=== PATIENT | female | born 1975 | race Caucasian/White ===

== ENCOUNTER 2016-06-08 15:08 | Emergency (ER) | payer OTHER ==
[~2016-06-08] VITALS: Ht 149.9 cm; Wt 65.0 kg
[2016-06-08 15:25] VITALS: Ht 149.9 cm; Wt 65.0 kg
[2016-06-08] MEDS ORDERED: ONDANSETRON 4 MG INJ IV STA (16:26)
[2016-06-08] MEDS ORDERED: SOD CHLORIDE 0.9% 1,000 ML IV STA (16:26)
[2016-06-08] MEDS ORDERED: morphine 4 MG/ML VIAL IV STA (16:26)
--- NOTE | 2016-06-08 16:33 | ERD ---
ER Documentation Chief Complaint Date/Time DATE: 06/08/16 TIME: 16:30 Chief Complaint MID AP RADIATING TO RLQ TODAY DENIES V/D +NAUSEA HPI This is a 41-year-old female presents to the emergency department complaining of right upper quadrant pain that began 48 hours prior to arrival. She stated the pain radiated to the tip of her right scapula. There is no alleviating or exacerbating factors to the pain. The pain the last for several hours and then spontaneously resolved. She indicated she did not have any pain yesterday, however she awoke this morning around 1:30 AM, 12 hours prior to arrival with the same pain. Contrary to the triage note the patient states the pain does not radiate to her right lower quadrant. The pain has been present in the right lower quadrant as stated above still radiates to her right scapula. She has had no fevers or shaking or chills. She is felt nauseous but denies any hemoptysis hematemesis or melanotic stools. She denies any recent remote blunt or penetrating trauma. Her past surgical history includes a [employer] shunt that she had placed as a child due to hydrocephalus. She has had multiple revisions of her [employer]CH[employer]ICIAN shunt but denies a headache or changes in vision at this time. ROS All systems reviewed and are negative except as per history of present illness. Allergies Allergies: Coded Allergies: No Known Allergy (Unverified , 06/08/16) PMhx/Soc Anesthesia Reaction: No Hx Neurological Disorder: No Hx Respiratory Disorders: No Hx Cardiac Disorders: No Hx Psychiatric Problems: No Hx Miscellaneous Medical Probl: No Hx Alcohol Use: No Hx Substance Use: No Hx Tobacco Use: No Physical Exam Vitals Vital Signs Date Time Temp Pulse Resp B/P Pulse Ox O2 Delivery O2 Flow Rate FiO2 06/08/16 15:25 98.4 79 20 159/88 100 Physical Exam Constitutional:Well-developed. Well-nourished. HEENT:Normocephalic. Atraumatic.Pupils were equal round reactive to light. Moist mucous membranes.No tonsillar exudates. Neck: No nuchal rigidity. No lymphadenopathy. No posterior cervical spine tenderness or step-offs. Respiratory: Not using accessory muscles of respiration.Lungs were clear to auscultation bilaterally. No rhonchi. No rales. No wheezing. Cardiovascular: Regular rate regular rhythm.No murmurs. No rubs were appreciated.S1, S2 normal. Distal pulses are palpable 2+ bilaterally. GI: Abdomen was soft. Tenderness in the right upper quadrant with negative Vargas sign. No tenderness in the right lower quadrant, and no tenderness specifically over McBurney's point. Psoas sign negative. Obturator sign negative Muscle skeletal: Full range of motion of both the upper and lower extremities bilaterally.Normal muscle tone.No assymetrical calf tenderness or swelling. Skin: No petechia, no purpura. No lesions on the palms or the soles of the feet. No maculopapular rash. NEURO: Patient was alert, awake, orientated x3.No facial droop. Gait observed and normal with no ataxia.Speech had regular rate and rhythm. No focal neurological deficits. Result Diagram: 06/08/16180406/08/161804 Results 24 hrs Laboratory Tests Test 06/08/16 17:00 06/08/16 18:05 Urine Color LT. YELLOW Urine Clarity CLOUDY Urine pH 5.5 Urine Specific [place] >=1.030 Urine Ketones 40 Urine Nitrite NEGATIVE Urine Bilirubin NEGATIVE Urine Urobilinogen 0.2 E.U./dL Urine Leukocyte Esterase NEGATIVE Urine Microscopic RBC 2-5/HPF Urine Microscopic WBC 5-10/HPF Urine Squamous Epithelial Cells MANY Urine Bacteria MANY Urine Hemoglobin TRACE Urine Glucose NEGATIVE% Urine Total Protein TRACE White Blood Count 14.410^3/ul Red Blood Count 5.6210^6/ul Hemoglobin 14.3g/dl Hematocrit 44.5% Mean Corpuscular Volume 79.2fl Mean Corpuscular Hemoglobin 25.4pg Mean Corpuscular Hemoglobin Concent 32.1g/dl Red Cell Distribution Width 15.8% Platelet Count 44436^3/UL Mean Platelet Volume 9.7fl Neutrophils % 80.4% Lymphocytes % 15.4% Monocytes % 2.9% Eosinophils % 0.6% Basophils % 0.4% Nucleated Red Blood Cells % 0.0/100WBC Neutrophils # 11.610^3/ul Lymphocytes # 2.210^3/ul Monocytes # 0.410^3/ul Eosinophils # 0.110^3/ul Basophils # 0.110^3/ul Nucleated Red Blood Cells # 0.010^3/ul Prothrombin Time 12.2Sec Prothrombin Time Ratio 1.0 INR International Normalized Ratio 0.91 Activated Partial Thromboplast Time 30.3Sec Sodium Level 140mmol/L Potassium Level 4.8mmol/L Chloride Level 100mmol/L Carbon Dioxide Level 25mmol/L Anion Gap 20 Blood Urea Nitrogen 13mg/dl Creatinine 0.77mg/dl Glucose Level 131mg/dl Calcium Level 9.4mg/dl Total Bilirubin 0.3mg/dl Direct Bilirubin 0.00mg/dl Indirect Bilirubin 0.3mg/dl Aspartate Amino Transf (AST/SGOT) 26IU/L Alanine Aminotransferase (ALT/SGPT) 37IU/L Alkaline Phosphatase 51IU/L Troponin I < 0.012ng/ml Total Protein 8.8g/dl Albumin 4.3g/dl Globulin 4.50g/dl Albumin/Globulin Ratio 0.95 Amylase Level 81U/L Lipase 45U/L Current Medications Medications (Trade) Dose Ordered Sig/[place] Route PRN Reason Start Time Stop Time Status Last Admin Dose Admin Sodium Chloride (NS) 1,000 ml @ 1,000 mls/hr Q1H STAT IV 06/08/16 16:26 06/08/16 17:25 DC 06/08/16 18:09 Morphine Sulfate (morphine) 4 mg ONCE STAT IV 06/08/16 16:26 06/08/16 16:31 DC 06/08/16 18:08 Ondansetron HCl (Zofran Inj) 4 mg ONCE STAT IV 06/08/16 16:26 06/08/16 16:31 DC 06/08/16 18:08 Diclofenac Sodium (Dyloject) 37.5 mg ONCE STAT IV 06/08/16 18:26 06/08/16 18:29 DC 06/08/16 18:37 Procedures/MDM The patient presented to the emergency department with epigastric pain. My differential diagnosis included but was not limited to abdominal aortic aneurysm , choledocholithiasis, gallstone ileus, renal colic, pyelonephritis, pancreatitis, peptic ulcer disease, atypical myocardical infarction, mesenteric ischemia, GERD, pulmonary infarction. The patient was placed on a telemetry monitor, continuous pulse oximetry and IV access was established by nursing staff. Patient received intravenous morphine and had complete resolution of her pain An EKG was obtained to rule out myocardial ischemia. There was no elevation of LFTs to suggest ductal obstruction, cholangitis, cholecystiitis or hepatitis. Given that the urinalysis did not show bilirubinuria, my suspicion for common duct obstruction or hepatitis was low. Ultrasound of the gallbladder or and reviewed by myself indicated the patient had cholelithiasis with no evidence of cholecystitis. The patient had mild leukocytosis and my clinical suspicion was low for appendicitis as the patient had no reproducible tenderness the right lower quadrant and therefore did not feel is necessary to obtain a CT scan at this time. The patient also had a mild urinary tract infection and will be sent home with antibiotics which will include Keflex. Her pain completely resolved with bile object and morphine. She will be sent home with [place] for breakthrough pain and follow-up on an outpatient basis with the surgeon to discuss definitive treatment and possible cholecystectomy. The patient was discharged home in fair condition. They were instructed to return to the emergency department at any time if there was any worsening of their condition. The patient stated they would follow up with their PCP in the next 24-48 hours to initiate a suitable medication regimen under the care of their PCP as well as to allow their PCP to monitor any drug reactions. The patient was discharged home with prescriptions after they gave informed consent to the new medication. They were also fully informed by myself on the adverse effects and adverse drug interactions in order to provide adequate safeguards to prevent possible adverse reactions to medications. Departure Diagnosis: Primary Impression: Cholelithiasis Cholelithiasis location: gallbladder Cholecystitis presence: without cholecystitis Biliary obstruction: without biliary obstruction Qualified Code : K80.20 - Calculus of gallbladder without cholecystitis without obstruction Condition: KULDIP Brewer Jun 08, 2016 16:33
--- NOTE | 2016-06-08 17:13 | RADRPT ---
PROCEDURE: US Abdomen. CLINICAL INDICATION: Abdominal pain. TECHNIQUE: Multiple real-time images were acquired of the patient's abdomen and retroperitoneum ut ilizing a high resolution transducer. COMPARISON: No. FINDINGS: The pancreas is obscured by bowel gas. The liver is echogenic measuring 15.2 cm in length. No hepatic mass or intrahepatic biliary ductal dilatation is identified. The gallbladder wall measures 2.4 mm. Sludge is noted within the gallbla dder lumen along with multiple stones. The hepatic and portal veins are patent. Right kidney is normal measuring 8.2 cm in length without evidence of a mass or hydronephrosis. The left kidney and spleen are not evaluated. IMPRESSION: 1. Cholelithiasis without evidence of gallbladder wall thickening. 2. The pancreas and common bile duct are not evaluated. RPTAT:AAJJ Physician Zuly Date Time Electronically viewed and signed by Physician Zuly on 06/08/2016 17:12 /
[2016-06-08 17:43] LABS: ADD UMIC YES; URINE BILIRUBIN (Dip) NEGATIVE (NEGATIVE); URINE BLOOD (Dip) TRACE (NEGATIVE); URINE COLOR LT. YELLOW (YELLOW); URINE GLUCOSE (Dip) NEGATIVE (NEGATIVE); URINE KETONES (Dip) 40 (NEGATIVE); URINE LEUKOCYTE ESTERASE (Dip) NEGATIVE (NEGATIVE); URINE NITRITE (Dip) NEGATIVE (NEGATIVE); URINE TOTAL PROTEIN (Dip) TRACE (NEGATIVE); URINE UROBILINOGEN (Dip) 0.2 E.U./dL (0.1-1.0)
[2016-06-08 18:26] LABS: BACTERIA,URINE MANY; SQUAMOUS EPITHELIAL CELL,UR MANY
[2016-06-08 18:26] LABS: ADD SCAN DIFF NO
[2016-06-08] MEDS ORDERED: DICLOFENAC SODIUM 37.5 MG/ML VIAL IV STA (18:26)
[2016-06-08 18:38] LABS: BASOPHIL # 0.1 10^3/ul (0.0-0.1); BASOPHILS % 0.4 % (0.0-2.0); EOSINOPHILS # 0.1 10^3/ul (0.0-0.5); EOSINOPHILS % 0.6 % (0.0-7.0); HEMATOCRIT 44.5 % (37.0-47.0); HEMOGLOBIN 14.3 g/dl (12.0-16.0); LYMPHOCYTES # 2.2 10^3/ul (0.8-2.9); LYMPHOCYTES % 15.4 % (15.0-51.0); MEAN CORPUSCULAR HEMOGLOBIN 25.4 pg (29.0-33.0); MEAN CORPUSCULAR HGB CONC 32.1 g/dl (32.0-37.0); MEAN CORPUSCULAR VOLUME 79.2 fl (82.0-101.0); MEAN PLATELET VOLUME 9.7 fl (7.4-10.4); MONOCYTE # 0.4 10^3/ul (0.3-0.9); MONOCYTES % 2.9 % (0.0-11.0); NEUTROPHIL # 11.6 10^3/ul (1.6-7.5); NEUTROPHILS % 80.4 % (39.0-77.0); PLATELET COUNT 466 10^3/UL (140-415); RED BLOOD COUNT 5.62 10^6/ul (4.20-5.40); RED CELL DISTRIBUTION WIDTH 15.8 % (11.5-14.5); WHITE BLOOD COUNT 14.4 10^3/ul (4.8-10.8)
[2016-06-08 18:39] LABS: ALBUMIN 4.3 g/dl (3.3-4.9); CHLORIDE 100 mmol/L (97-110); INR 0.91; PROTIME 12.2 Sec (12.2-14.2); SODIUM 140 mmol/L (135-144)
[2016-06-08 18:40] LABS: PARTIAL THROMBOPLASTIN TIME 30.3 Sec (25.0-35.0); POTASSIUM 4.8 mmol/L (3.5-5.1)
[2016-06-08 18:42] LABS: ALANINE AMINOTRANSFERASE 37 IU/L (13-69); ALBUMIN/GLOBULIN RATIO 0.95; ALKALINE PHOSPHATASE 51 IU/L (42-121); AMYLASE 81 U/L (11-123); ANION GAP 20 (8-16); ASPARTATE AMINO TRANSFERASE 26 IU/L (15-46); BILIRUBIN,INDIRECT 0.3 mg/dl (0-1.1); BILIRUBIN,TOTAL 0.3 mg/dl (0.2-1.3); BLOOD UREA NITROGEN 13 mg/dl (7-20); CALCIUM 9.4 mg/dl (8.4-10.2); CARBON DIOXIDE 25 mmol/L (21-31); CREATININE 0.77 mg/dl (0.44-1.00); GLUCOSE 131 mg/dl (70-220); TOTAL PROTEIN 8.8 g/dl (6.1-8.1)
[2016-06-08 18:57] LABS: TROPONIN-I < 0.012 ng/ml (0.00-0.12)
[2016-06-08] MEDS ORDERED: IBUP-1542 PO (19:27)
[2016-06-08] MEDS ORDERED: HYDR-906 PO (19:27)
[2016-06-08 19:56] VITALS: BP 125/82; PULSE 108; RESP 20; TEMP 98.4
== END 2016-06-08 19:56 | disposition home or self-care (01) ==
LOC: FTE 15:08
DX: K80.20 Calculus of gallbladder without cholecystitis without obstruction (principal); R11.0 Nausea
CPT/HCPCS: 76705; 80053; 81001; 82150; 83690; 84484; 85025; 85610; 85730; 93005; J2270; J2405; J7030; 81003; 96374; 96375

== ENCOUNTER 2016-06-14 03:31 | Emergency (ER) | payer OTHER ==
[~2016-06-14] VITALS: Ht 152.4 cm; Wt 64.5 kg
[~2016-06-14 03:31] MED LIST: HYDR-906 PO; IBUP-1542 PO
[2016-06-14 03:33] VITALS: Ht 152.4 cm; Wt 64.5 kg
[2016-06-14] MEDS ORDERED: morphine 4 MG/ML VIAL IV STA (04:25)
[2016-06-14] MEDS ORDERED: ONDANSETRON 4 MG INJ IV STA (04:25)
[2016-06-14] MEDS ORDERED: SOD CHLORIDE 0.9% 1,000 ML IV STA (04:25)
[2016-06-14 05:19] LABS: ADD SCAN DIFF NO
[2016-06-14 05:24] LABS: BASOPHIL # 0.1 10^3/ul (0.0-0.1); BASOPHILS % 0.4 % (0.0-2.0); EOSINOPHILS # 0.4 10^3/ul (0.0-0.5); EOSINOPHILS % 2.3 % (0.0-7.0); HEMATOCRIT 40.1 % (37.0-47.0); HEMOGLOBIN 13.1 g/dl (12.0-16.0); LYMPHOCYTES # 2.4 10^3/ul (0.8-2.9); LYMPHOCYTES % 15.2 % (15.0-51.0); MEAN CORPUSCULAR HEMOGLOBIN 25.8 pg (29.0-33.0); MEAN CORPUSCULAR HGB CONC 32.7 g/dl (32.0-37.0); MEAN CORPUSCULAR VOLUME 78.9 fl (82.0-101.0); MEAN PLATELET VOLUME 9.6 fl (7.4-10.4); MONOCYTE # 0.7 10^3/ul (0.3-0.9); MONOCYTES % 4.2 % (0.0-11.0); NEUTROPHIL # 12.1 10^3/ul (1.6-7.5); NEUTROPHILS % 77.4 % (39.0-77.0); PLATELET COUNT 398 10^3/UL (140-415); RED BLOOD COUNT 5.08 10^6/ul (4.20-5.40); RED CELL DISTRIBUTION WIDTH 15.9 % (11.5-14.5); WHITE BLOOD COUNT 15.6 10^3/ul (4.8-10.8)
[2016-06-14 05:34] LABS: ALBUMIN 3.7 g/dl (3.3-4.9)
[2016-06-14 05:35] LABS: POTASSIUM 3.7 mmol/L (3.5-5.1)
[2016-06-14 05:37] LABS: ALBUMIN/GLOBULIN RATIO 0.92; BILIRUBIN,INDIRECT 0.4 mg/dl (0-1.1); BILIRUBIN,TOTAL 0.4 mg/dl (0.2-1.3); CREATININE 0.85 mg/dl (0.44-1.00); TOTAL PROTEIN 7.7 g/dl (6.1-8.1)
[2016-06-14 05:38] LABS: CALCIUM 8.8 mg/dl (8.4-10.2)
[2016-06-14 06:25] LABS: ADD UMIC NO; URINE BILIRUBIN (Dip) NEGATIVE (NEGATIVE); URINE BLOOD (Dip) NEGATIVE (NEGATIVE); URINE COLOR LT. YELLOW (YELLOW); URINE GLUCOSE (Dip) NEGATIVE (NEGATIVE); URINE KETONES (Dip) 15 (NEGATIVE); URINE LEUKOCYTE ESTERASE (Dip) NEGATIVE (NEGATIVE); URINE NITRITE (Dip) NEGATIVE (NEGATIVE); URINE TOTAL PROTEIN (Dip) NEGATIVE (NEGATIVE); URINE UROBILINOGEN (Dip) 0.2 E.U./dL (0.1-1.0)
[2016-06-14] MEDS ORDERED: morphine 10 MG INJ IV ONE (07:00)
--- NOTE | 2016-06-14 07:01 | ERD ---
ER Documentation Chief Complaint Date/Time DATE: 06/14/16 TIME: 06:58 Chief Complaint RUQ abd pain radaiting to back x 2 days, hx- gall stones HPI This 41-year-old female presents for right upper quadrant pain rating to her back for 2 days worse in the last hour. She was recently diagnosed with gallstones. She denies any fevers chills. Has had some nausea. She took one [place] at home which started to help for the pain but then it wore off. ROS All systems reviewed and are negative except as per history of present illness. Medications Home Meds Active Scripts Ibuprofen* (Motrin*) 600 Mg Tab, 600 MG PO Q8, #20 TAB Prov:ELVIA RASHEEDA 06/08/16 Hydrocodone/Acetaminophen ([place] 5-325 Tablet) 1 Each Tablet, 1 TAB PO Q6H Y for PAIN, #20 TAB Prov:WILI,KULDIP 06/08/16 Allergies Allergies: Coded Allergies: No Known Allergy (Unverified , 06/08/16) PMhx/Soc Anesthesia Reaction: No Hx Neurological Disorder: No Hx Respiratory Disorders: No Hx Cardiac Disorders: No Hx Psychiatric Problems: No Hx Miscellaneous Medical Probl: No Hx Alcohol Use: No Hx Substance Use: No Hx Tobacco Use: No Smoking Status: Never smoker Physical Exam Vitals Vital Signs Date Time Temp Pulse Resp B/P Pulse Ox O2 Delivery O2 Flow Rate FiO2 06/14/16 06:07 126 22 133/80 99 06/14/16 03:33 97.8 121 20 131/78 98 Physical Exam Const: [] No distress Head: Atraumatic Eyes: Normal Conjunctiva ENT: Normal External Ears, Nose and Mouth. Neck: Full range of motion..~ No meningismus. Resp: Clear to auscultation bilaterally Cardio: Regular mild tachycardia, no murmurs Abd: Soft, moderate right upper quadrant tenderness without guarding or rebound., non distended. Normal bowel sounds Skin: No petechiae or rashes Back: No midline or flank tenderness Ext: No cyanosis, or edema Neur: Awake and alert and oriented 3, no focal deficit Psych: Normal Mood and Affect Result Diagram: 06/14/16 0455 06/14/16 0455 Results 24 hrs Laboratory Tests Test 06/14/16 04:55 06/14/16 06:03 White Blood Count 15.610^3/ul Red Blood Count 5.0810^6/ul Hemoglobin 13.1g/dl Hematocrit 40.1% Mean Corpuscular Volume 78.9fl Mean Corpuscular Hemoglobin 25.8pg Mean Corpuscular Hemoglobin Concent 32.7g/dl Red Cell Distribution Width 15.9% Platelet Count 59428^3/UL Mean Platelet Volume 9.6fl Neutrophils % 77.4% Lymphocytes % 15.2% Monocytes % 4.2% Eosinophils % 2.3% Basophils % 0.4% Nucleated Red Blood Cells % 0.0/100WBC Neutrophils # 12.110^3/ul Lymphocytes # 2.410^3/ul Monocytes # 0.710^3/ul Eosinophils # 0.410^3/ul Basophils # 0.110^3/ul Nucleated Red Blood Cells # 0.010^3/ul Sodium Level 140mmol/L Potassium Level 3.7mmol/L Chloride Level 103mmol/L Carbon Dioxide Level 25mmol/L Anion Gap 16 Blood Urea Nitrogen 16mg/dl Creatinine 0.85mg/dl Glucose Level 141mg/dl Calcium Level 8.8mg/dl Total Bilirubin 0.4mg/dl Direct Bilirubin 0.00mg/dl Indirect Bilirubin 0.4mg/dl Aspartate Amino Transf (AST/SGOT) 225IU/L Alanine Aminotransferase (ALT/SGPT) 155IU/L Alkaline Phosphatase 51IU/L Total Protein 7.7g/dl Albumin 3.7g/dl Globulin 4.00g/dl Albumin/Globulin Ratio 0.92 Lipase 74U/L Urine Color LT. YELLOW Urine Clarity CLEAR Urine pH 6.0 Urine Specific [place] <=1.005 Urine Ketones 15 Urine Nitrite NEGATIVE Urine Bilirubin NEGATIVE Urine Urobilinogen 0.2 E.U./dL Urine Leukocyte Esterase NEGATIVE Urine Hemoglobin NEGATIVE Urine Glucose NEGATIVE% Urine Total Protein NEGATIVE Current Medications Medications (Trade) Dose Ordered Sig/[place] Route PRN Reason Start Time Stop Time Status Last Admin Dose Admin Sodium Chloride (NS) 1,000 ml @ 1,000 mls/hr Q1H STAT IV 06/14/16 04:25 06/14/16 05:24 DC 06/14/16 04:46 Morphine Sulfate (morphine) 6 mg ONCE STAT IV 06/14/16 04:25 06/14/16 04:26 DC 06/14/16 04:45 Ondansetron HCl (Zofran Inj) 4 mg ONCE STAT IV 06/14/16 04:25 06/14/16 04:26 DC 06/14/16 04:45 Procedures/MDM Biliary colic with white blood cell count elevation as well as mild LFT elevation cardia suggestive of acute cholecystitis. Patient was given 4 mg of morphine which almost resolved her pain, was given Zofran which resolved her nausea and IV fluids. She still remained mildly tachycardic and was offered admission. However she was feeling better and decided she would rather go home and try to follow-up with surgeon on Wednesday. States that she can return to the emergency room if needed. I again reiterated the positive findings but she would prefer to go home. Ultrasound did show no evidence of obstruction currently. Am going to discharge with Percocet, naproxen and Zofran ODT. Gallbladder ultrasound interpretation gallstones without persistent colic fluid , without dilated duct, without thickened wall. Departure Diagnosis: Primary Impression: Acute cholecystitis Condition: NEELAM Topete DO Jun 14, 2016 07:01
[2016-06-14] MEDS ORDERED: ONDA4TAB11 PO (07:04)
[2016-06-14] MEDS ORDERED: OXYC-209 PO (07:04)
[2016-06-14] MEDS ORDERED: NAPR-688 PO (07:04)
--- NOTE | 2016-06-14 07:04 | RADRPT ---
PROCEDURE: Abdominal ultrasound, limited. CLINICAL INDICATION: Abdominal pain. TECHNIQUE: Multiple real-time images were acquired of the patient's right upper abdomen utilizing a high resolution transducer. COMPARISON: 06/08/2016. FINDINGS: The liver demonstrates increased echogenicity and normal size measuring 15.1 cm. There is no focal mass or intrahepatic biliary ductal dilatation. The portal vein is patent. The gallbladder is not distended. Multiple echogenic gallstones are identified. There is no pericholecystic fluid or gall bladder wall thickening. There is a negative sonographic Vargas's sign. The common bile duct measu res 3.6 mm in maximal dimension. The pancreas is obscured by overlying bowel gas. No free fluid is identified. The right kidney is normal size and echogenicity measuring 8.8 cm. There is no focal renal mass or echogenic calculus identified. There is no obstructive uropathy. IMPRESSION: Cholelithiasis without ultrasound evidence of cholecystitis. Fatty infiltration of the liver. Pancreas obscured by overlying bowel gas. .Ibrahima Delcid MD, MD Date Time Electronically viewed and signed by .Ibrahima Delcid MD, MD on 06/14/2016 07:04 .T/
[2016-06-14] MEDS ORDERED: METR500T PO (07:05)
[2016-06-14] MEDS ORDERED: CIPR500T4 PO (07:05)
[2016-06-14 08:05] VITALS: BP 129/83; PULSE 78; RESP 16; TEMP 98.6
== END 2016-06-14 08:10 | disposition home or self-care (01) ==
LOC: E/R 03:31
DX: K81.0 Acute cholecystitis (principal); R11.0 Nausea
CPT/HCPCS: 36415; 76705; 80053; 81003; 83690; 85025; 96374; 96375; 96376; 99285; J2270; J2405; J7030

== ENCOUNTER 2016-06-15 18:42 | Inpatient (IN) | payer OTHER ==
[~2016-06-15] VITALS: Ht 149.9 cm; Wt 65.0 kg
[~2016-06-15 18:42] MED LIST changes: +CIPR500T4 PO; +METR500T PO; +NAPR-688 PO; +ONDA4TAB11 PO; +OXYC-209 PO
--- NOTE | 2016-06-15 21:48 | ERD ---
ER Documentation Chief Complaint Date/Time DATE: 06/15/16 TIME: 21:45 Chief Complaint WORSENED AP, ON ANTIBIOTICS AND PAIN MEDS. STATES STILL HURTS MORE. HPI 41-year-old female presents here in emergency department for complaints of right upper quadrant abdominal pain, was diagnosed of gallbladder stones 2 days ago, currently was given antibiotics, currently taking, also took pain medication at home prescribed 2 days ago, patient is complaining of right upper quadrant pain sharp pain 8/10 scale, better after taking. Patient denies any nausea or vomiting. Patient denies any fever or chills. Patient isn't developing. Patient denies hematuria or dysuria. ROS All systems reviewed and are negative except as per history of present illness. Medications Home Meds Active Scripts Metronidazole* (Flagyl*) 500 Mg Tablet, 500 MG PO TID for 7 Days, TAB Prov:NEELAM STEWART DO 06/14/16 Ciprofloxacin Hcl* (Ciprofloxacin Hcl*) 500 Mg Tablet, 500 MG PO BID for 7 Days , TAB Prov:NEELAM STEWART DO 06/14/16 Ondansetron (Zofran Odt) 4 Mg Tab.rapdis, 4 MG PO Q6, #10 Prov:NEELAM STEWART DO 06/14/16 Naproxen* (Naproxen*) 500 Mg Tablet, 500 MG PO BID Y for PAIN, #20 TAB Prov:NEELAM STEWART DO 06/14/16 Oxycodone HCl/Acetaminophen (Percocet 10-325 mg Tablet) 1 Each Tablet, 1 EACH PO Q6, #20 TAB Prov:NEELAM STEWART DO 06/14/16 Ibuprofen* (Motrin*) 600 Mg Tab, 600 MG PO Q8, #20 TAB Prov:WILIJULIO CÉSAR CAMPOSTHIA 06/08/16 Hydrocodone/Acetaminophen ([place] 5-325 Tablet) 1 Each Tablet, 1 TAB PO Q6H Y for PAIN, #20 TAB Prov:WILI,KULDIP 06/08/16 Allergies Allergies: Coded Allergies: No Known Allergy (Unverified , 06/08/16) PMhx/Soc History of Surgery: Yes ([employer] PHYSICIAN shunt placement) Anesthesia Reaction: No Hx Neurological Disorder: No Hx Respiratory Disorders: No Hx Cardiac Disorders: No Hx Psychiatric Problems: No Hx Miscellaneous Medical Probl: Yes (hydrocephalus, gallbladder stones) Hx Alcohol Use: No Hx Substance Use: No Hx Tobacco Use: No Smoking Status: Never smoker FmHx Family History: No coronary disease, No diabetes, No other Physical Exam Vitals Vital Signs Date Time Temp Pulse Resp B/P Pulse Ox O2 Delivery O2 Flow Rate FiO2 06/15/16 19:46 99.0 101 18 135/82 97 Physical Exam GENERAL: The patient is well developed and appropriate for usual state of health, in no apparent distress. CHEST: Clear to auscultation bilaterally. There are no rales, wheezes or rhonchi. HEART: Regular rate and rhythm. No murmurs, clicks, rubs or gallops. No S3 or S4. ABDOMEN: Soft, nontender and nondistended. Good bowel sounds. No rebound or guarding. No gross peritonitis. No gross organomegaly or masses. Positive Vargas 's sign, negative McBurney point tenderness. BACK: No midline or flank tenderness. EXTREMITIES: Equal pulses bilaterally. There is no peripheral clubbing, cyanosis or edema. No focal swelling or erythema. Full range of motion. Grossly neurovascularly intact. NEURO: Alert and oriented. Cranial nerves 2-12 intact. Motor strength in all 4 extremities with 5/5 strength. Sensation grossly intact. Normal speech and gait. SKIN: There is no apparent rash or petechia. The skin is warm and dry. HEMATOLOGIC AND LYMPHATIC: There is no evidence of excessive bruising or lymphedema. No gross cervical, axillary, or inguinal lymphadenopathy. Result Diagram: 06/15/16215406/15/162154 Results 24 hrs Laboratory Tests Test 06/15/16 21:55 White Blood Count 10.310^3/ul Red Blood Count 5.0410^6/ul Hemoglobin 13.2g/dl Hematocrit 39.9% Mean Corpuscular Volume 79.2fl Mean Corpuscular Hemoglobin 26.2pg Mean Corpuscular Hemoglobin Concent 33.1g/dl Red Cell Distribution Width 16.0% Platelet Count 99704^3/UL Mean Platelet Volume 9.2fl Neutrophils % 73.5% Lymphocytes % 15.5% Monocytes % 6.0% Eosinophils % 3.9% Basophils % 0.6% Nucleated Red Blood Cells % 0.0/100WBC Neutrophils # 7.610^3/ul Lymphocytes # 1.610^3/ul Monocytes # 0.610^3/ul Eosinophils # 0.410^3/ul Basophils # 0.110^3/ul Nucleated Red Blood Cells # 0.010^3/ul Sodium Level 139mmol/L Potassium Level 4.0mmol/L Chloride Level 102mmol/L Carbon Dioxide Level 24mmol/L Anion Gap 17 Blood Urea Nitrogen 10mg/dl Creatinine 0.82mg/dl Glucose Level 117mg/dl Calcium Level 9.2mg/dl Total Bilirubin 3.1mg/dl Direct Bilirubin 2.20mg/dl Indirect Bilirubin 0.9mg/dl Aspartate Amino Transf (AST/SGOT) 327IU/L Alanine Aminotransferase (ALT/SGPT) 500IU/L Alkaline Phosphatase 118IU/L Total Protein 8.5g/dl Albumin 4.1g/dl Globulin 4.40g/dl Albumin/Globulin Ratio 0.93 Lipase 59U/L Current Medications Medications (Trade) Dose Ordered Sig/[place] Route PRN Reason Start Time Stop Time Status Last Admin Dose Admin Sodium Chloride (NS) 1,000 ml @ 1,000 mls/hr Q1H ONCE IV 06/15/16 22:30 06/15/16 23:29 DC 06/15/16 23:03 Morphine Sulfate (morphine) 2 mg ONCE ONCE IV 06/15/16 22:30 06/15/16 22:31 DC 06/15/16 23:03 Ondansetron HCl (Zofran Inj) 4 mg ONCE STAT IV 06/15/16 22:24 06/15/16 22:28 DC 06/15/16 23:02 Patient was given medication for pain here in emergency department, after treatment, patient verbalized feeling much better. Patient's pain is improved.Patient was given Zofran here in the emergency department. After treatment, patient was able to tolerate po fluids here in the emergency department without any vomiting. There is no signs and symptoms of dehydration. Normal saline IV bolus was given here in emergency department for rehydration, patient tolerated IV fluids. PROCEDURE: US Abdomen. CLINICAL INDICATION: Right upper quadrant pain TECHNIQUE: Multiple real-time images were acquired of the patient's abdomen and retroperitoneum utilizing a high resolution transducer. COMPARISON: 06/14/2016 FINDINGS: The liver demonstrates normal echogenicity and size and no focal lesions are seen. The liver measures 15.8 cm in length. There are gallstones in the gallbladder. There is no gallbladder wall thickening or pericholecystic fluid identified. No intra or extrahepatic biliary dilatation is seen. The common bile duct measures 4 mm in maximal dimension. The pancreas is not well visualized. No free fluid is identified. The right kidney measures 8.5 cm in long dimension. There is no right hydronephrosis or visualized renal calculi. IMPRESSION: 1. Gallstones in the gallbladder. No gallbladder wall thickening or pericholecystic fluid. 2. No biliary dilatation or right hydronephrosis. RPTAT: HBST .Antoine Chacon MD, MD Date Time Electronically viewed and signed by .Antoine Chacon MD, on 06/15/2016 23:12 .T/ CC: PRATIK SALMON NP Procedures/MDM Medical Decision Making: Patient's right upper quadrant tenderness, positive Vargas sign, elevated total bilirubin direct bilirubin and liver function tests from yesterday, patient has multiple gallbladder stones in the gallbladder, considering patient's symptoms, I discussed this case with my attending physician, Dr. Garcia, patient will be admitted for acute cholecystitis, possible surgical evaluation. Patient was advised about this, agrees with plan. Departure Diagnosis: Primary Impression: Cholecystitis Condition: Fair PRATIK SALMON NP June 15, 2016 21:48 PRATIK SALMON NP June 15, 2016 21:48
[2016-06-15 22:03] LABS: ADD SCAN DIFF NO
[2016-06-15 22:04] LABS: BASOPHIL # 0.1 10^3/ul (0.0-0.1); BASOPHILS % 0.6 % (0.0-2.0); EOSINOPHILS # 0.4 10^3/ul (0.0-0.5); EOSINOPHILS % 3.9 % (0.0-7.0); HEMATOCRIT 39.9 % (37.0-47.0); HEMOGLOBIN 13.2 g/dl (12.0-16.0); LYMPHOCYTES # 1.6 10^3/ul (0.8-2.9); LYMPHOCYTES % 15.5 % (15.0-51.0); MEAN CORPUSCULAR HEMOGLOBIN 26.2 pg (29.0-33.0); MEAN CORPUSCULAR HGB CONC 33.1 g/dl (32.0-37.0); MEAN CORPUSCULAR VOLUME 79.2 fl (82.0-101.0); MEAN PLATELET VOLUME 9.2 fl (7.4-10.4); MONOCYTE # 0.6 10^3/ul (0.3-0.9); NEUTROPHIL # 7.6 10^3/ul (1.6-7.5); NEUTROPHILS % 73.5 % (39.0-77.0); PLATELET COUNT 378 10^3/UL (140-415); RED BLOOD COUNT 5.04 10^6/ul (4.20-5.40); WHITE BLOOD COUNT 10.3 10^3/ul (4.8-10.8)
[2016-06-15 22:14] LABS: ALBUMIN 4.1 g/dl (3.3-4.9)
[2016-06-15 22:17] LABS: BILIRUBIN,DIRECT 2.2 mg/dl (0.00-0.20); BILIRUBIN,INDIRECT 0.9 mg/dl (0-1.1); BILIRUBIN,TOTAL 3.1 mg/dl (0.2-1.3); CREATININE 0.82 mg/dl (0.44-1.00)
[2016-06-15 22:18] LABS: ALBUMIN/GLOBULIN RATIO 0.93; CALCIUM 9.2 mg/dl (8.4-10.2); TOTAL PROTEIN 8.5 g/dl (6.1-8.1)
[2016-06-15] MEDS ORDERED: ONDANSETRON 4 MG INJ IV STA (22:24)
[2016-06-15] MEDS ORDERED: SOD CHLORIDE 0.9% 1,000 ML IV ONE (22:30)
[2016-06-15] MEDS ORDERED: morphine 2 MG INJ IV ONE (22:30)
--- NOTE | 2016-06-15 23:12 | RADRPT ---
PROCEDURE: US Abdomen. CLINICAL INDICATION: Right upper quadrant pain TECHNIQUE: Multiple real-time images were acquired of the patient's abdomen and retroperitoneum ut ilizing a high resolution transducer. COMPARISON: 06/14/2016 FINDINGS: The liver demonstrates normal echogenicity and size and no focal lesions are seen. The liver measure s 15.8 cm in length. There are gallstones in the gallbladder. There is no gallbladder wall thickeni ng or pericholecystic fluid identified. No intra or extrahepatic biliary dilatation is seen. The co mmon bile duct measures 4 mm in maximal dimension. The pancreas is not well visualized. No free f luid is identified. The right kidney measures 8.5 cm in long dimension. There is no right hydronephrosis or visualized r enal calculi. IMPRESSION: 1. Gallstones in the gallbladder. No gallbladder wall thickening or pericholecystic fluid. 2. No biliary dilatation or right hydronephrosis. RPTAT: HBST .Antoine Chacon MD, MD Date Time Electronically viewed and signed by .Antoine Chacon MD, on 06/15/2016 23:12 .T/
--- NOTE | 2016-06-16 02:24 | QN ---
Documentation Comment H&P dict a/p 1. gall stone disease, check MRCP, ?ercp, lap danielle CARMEN HOLLINS MD June 16, 2016 02:24
[2016-06-16] MEDS ORDERED: ZOLPIDEM 5 MG TAB PO PRN (02:30)
--- NOTE | 2016-06-16 02:41 | HP ---
DATE OF ADMISSION: 06/15/2016 CHIEF COMPLAINT: Abdominal pain. HISTORY OF PRESENT ILLNESS: The patient presents to the emergency room at [facility] for t he third time in 1 week with abdominal pain, which she localizes to the epigastrium and right upper quadrant region. This is associated with some nausea, no vomiting, no diarrhea. Denies fevers and chills. States that this pain has been present, coming and going. She has been to the emergency ro om 3 times. She had an ultrasound and was told she had gallstones. She was referred to home and to to follow up with her primary care physician to arrange surgeon referral. However, she had recur rence of her symptoms and returns here to the emergency room. PAST MEDICAL HISTORY: Nil. MEDICATIONS AN OUTPATIENT: Nil. ALLERGIES: NIL. SOCIAL HISTORY: The patient lives at home in [place] with her . Independent of activitie s of daily living. Does not drive. Does not use a cane or walker. FAMILY HISTORY: Noncontributory. REVIEW OF SYSTEMS: Five systems reviewed and found not to be revealing. PHYSICAL EXAMINATION: VITAL SIGNS: Blood pressure is 127/82, pulse rate 79, respirations 18, temperature is 98.5. GENERAL: Pleasant young woman in no acute distress, alert and oriented x3. HEENT: Normocephalic, atraumatic without evident scleral icterus, perioral cyanosis. Mucous membra margarita are moist. NECK: Soft and supple without masses. No evidence of jugular venous distention or carotid bruits. CHEST: Clear to auscultation and percussion bilaterally. HEART: Regular rate and rhythm. S1, S2. No added sounds. ABDOMEN: Soft. Tender in the right upper quadrant. No palpable hepatosplenomegaly. EXTREMITIES: Without clubbing, cyanosis, or edema. SKIN: Without rashes. NEUROLOGIC: Grossly intact. LABORATORY STUDIES: Reveal hemoglobin 13.2 g/dL, white count of 10,300; platelets of 378,000. Sodi um 139, potassium 4.0, chloride 102, bicarbonate 24, BUN 10, creatinine 0.82, glucose 117. AST 327, ALT 500, alkaline phosphatase 118, total bilirubin 3.1. Lipase is 59. The patient had an abdomina l ultrasound, which reveals gallstones in the gallbladder, but no wall thickening or pericholecystic fluid. No biliary ductal dilatation is appreciated. ASSESSMENT AND PLAN: Gastrointestinal: The patient with gallstone disease and manifest right upper quadrant pain. We will plan to obtain MRCP to ensure there is no common bile duct stone and surgic al evaluation. Anticipate laparoscopic cholecystectomy. Will start antibiotics, pain control, and IV fluids. Dictated By: CARMEN HOLLINS MD RER/NTS Conf#: [id number] DID#: [id number]
[2016-06-16] MEDS: PIPER-TAZO 3.375 GM IV (PMX) 100 ML IVPB SCH ×3 (03:09→17:41)
[2016-06-16] MEDS: D5W-0.45 NACL + KCL 40 MEQ 1,000 ML IV SCH ×3 (03:09→17:41)
[2016-06-16] MEDS: morphine 4 MG/ML VIAL IV PRN ×3 (03:13→15:41)
[2016-06-16] MEDS: ONDANSETRON 4 MG INJ IV PRN ×3 (03:13→21:55)
[2016-06-16] MEDS ORDERED: IBUPROFEN 200 MG TAB ONE (08:23)
--- NOTE | 2016-06-16 09:52 | CONS ---
Date/Time of Note Date/Time of Note DATE: 06/16/16 TIME: 09:52 Assessment/Plan Assessment/Plan Chief Complaint/Hosp Course 41F with symptomatic cholelithiasis, possible choledocholithiasis * Continue NPO, IVF Hydration * Monitor LFTs * MRCP to evaluate for choledocholithiasis * GI Consult for possible ERCP if needed The above was discussed with the patient and her at the bedside. I ensured that all of their questions were answered. Further recommendations will be made based on clinical course and results of diagnostic studies. Problems: Consultation Date/Type/Reason Admit Date/Time Date of Consultation: June 16, 2016 Type of Consultation: GENERAL SURGERY Reason for Consultation ABDOMINAL PAIN Hx of Present Illness The patient is a 41 year old female who presents to the emergency room at [facility] for the third time in 1 week with complaints of abdominal pain. She describes the pain as being located in the epigastrium and right upper quadrant. This is associated with some nausea, no vomiting, no diarrhea. Denies fevers and chills. The pain has been intermittent. She had an ultrasound which showed gallstones without any evidence of gallbladder wall thickening or pericholecystic fluid. On her most recent ER visit she was also found to have elevated LFTs. Currently, she is laying comfortably in bed with her pain somewhat controlled with IV narcotics. A 14-point review of systems was conducted and was negative except that which was mentioned in the HPI. 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 No acute distress SKIN: No jaundice HEENT: No scleral icterus. NECK: Soft and supple without masses or JVD. CHEST: Clear to auscultation bilaterally. HEART: Regular rate and rhythm. S1, S2. No murmurs appreciated. ABDOMEN: Soft, non-distended, bowel sounds present. Mild right upper quadrant tenderness to deep palpation without rebound or guarding. Negative Vargas's sign. There are multiple healed antonio-umbilical and right upper quadrant incisions from prior surgery. EXTREMITIES: Without clubbing, cyanosis, or edema. NEUROLOGIC: Grossly intact. Results Result Diagram: 06/15/16215406/15/162154 Results 24 hrs Laboratory Tests Test 06/15/16 21:55 White Blood Count 10.3 # Red Blood Count 5.04 Hemoglobin 13.2 Hematocrit 39.9 Mean Corpuscular Volume 79.2 L Mean Corpuscular Hemoglobin 26.2 L Mean Corpuscular Hemoglobin Concent 33.1 Red Cell Distribution Width 16.0 H Platelet Count 378 Mean Platelet Volume 9.2 Neutrophils % 73.5 Lymphocytes % 15.5 Monocytes % 6.0 Eosinophils % 3.9 Basophils % 0.6 Nucleated Red Blood Cells % 0.0 Neutrophils # 7.6 H Lymphocytes # 1.6 Monocytes # 0.6 Eosinophils # 0.4 Basophils # 0.1 Nucleated Red Blood Cells # 0.0 Sodium Level 139 Potassium Level 4.0 Chloride Level 102 Carbon Dioxide Level 24 Anion Gap 17 H Blood Urea Nitrogen 10 Creatinine 0.82 Glucose Level 117 Calcium Level 9.2 Total Bilirubin 3.1 #H Direct Bilirubin 2.20 #H Indirect Bilirubin 0.9 Aspartate Amino Transf (AST/SGOT) 327 H Alanine Aminotransferase (ALT/SGPT) 500 H Alkaline Phosphatase 118 # Total Protein 8.5 H Albumin 4.1 Globulin 4.40 H Albumin/Globulin Ratio 0.93 Lipase 59 Medications Medications Current Medications Potassium Chloride/Dextrose/ Sod Cl 1,000 ml @ 125 mls/hr Q8H IV Last administered on 06/16/16 03:09; Admin Dose 125 MLS/HR; Start 06/16/16 at 02:30 Piperacillin Sod/ Tazobactam Sod (Zosyn 3.375gm/ 100 ml (Pmx)) 100 ml @ 200 mls /hr Q8H IVPB Last administered on 06/16/16 03:09; Admin Dose 200 MLS/HR; Start 06/16/16 at 02:30 Morphine Sulfate (morphine) 4 mg Q4H PRN IV pain Last administered on 06/16/16 08:25; Admin Dose 4 MG; Start 06/16/16 at 02:30 Ondansetron HCl (Zofran Inj) 4 mg Q4H PRN IV nausea Last administered on 08:24; Admin Dose 4 MG; Start 06/16/16 at 02:30 Acetaminophen (Tylenol Tab) 650 mg Q4H PRN PO pain/fever; Start 06/16/16 at 02: 30 Hydralazine HCl (Apresoline) 25 mg Q6H PRN PO sbp>160; Start 06/16/16 at 02:30 Procedures Procedures PROCEDURE: US Abdomen. CLINICAL INDICATION: Right upper quadrant pain TECHNIQUE: Multiple real-time images were acquired of the patient's abdomen and retroperitoneum utilizing a high resolution transducer. COMPARISON: 06/14/2016 FINDINGS: The liver demonstrates normal echogenicity and size and no focal lesions are seen. The liver measures 15.8 cm in length. There are gallstones in the gallbladder. There is no gallbladder wall thickening or pericholecystic fluid identified. No intra or extrahepatic biliary dilatation is seen. The common bile duct measures 4 mm in maximal dimension. The pancreas is not well visualized. No free fluid is identified. The right kidney measures 8.5 cm in long dimension. There is no right hydronephrosis or visualized renal calculi. IMPRESSION: 1. Gallstones in the gallbladder. No gallbladder wall thickening or pericholecystic fluid. 2. No biliary dilatation or right hydronephrosis. RPTAT: HBST .Antoine Chacon MD, Date Time Electronically viewed and signed by .Antoine Chacon MD, MD on 06/15/2016 23:12 .T/ CC: PRATIK SALMON NP, MICHAEL A. MD June 16, 2016 09:52
--- NOTE | 2016-06-16 11:29 | QN ---
Documentation Comment Observation Note: Time: 4 hours Family Hx: Negative for diabetes Evaluation: Multiple exams showed improving symptoms and no evidence of clinical decompensation. JEWEL OCHOA MD June 16, 2016 11:29
--- NOTE | 2016-06-16 13:37 | RADRPT ---
PROCEDURE: XR Skull. CLINICAL INDICATION: Headache/pain. TECHNIQUE: 2 views x-rays of the skull are available for review. COMPARISON: None available FINDINGS: There is right parietal ventriculostomy CSF shunting catheter. The osseous structures, articular sp aces, and surrounding soft tissues are unremarkable. The orbits are intact. The paranasal sinuses are clear. No soft tissue abnormality is seen. There is no foreign body. IMPRESSION: 1. Right parietal ventriculostomy CSF shunting catheter. RPTAT: GG .John Elizondo MD, MD Date Time Electronically viewed and signed by .John Elizondo MD, MD on 06/16/2016 13:36 .Y/
[2016-06-16 15:45] VITALS: TEMP 100.1
[2016-06-16] MEDS: ACETAMINOPHEN 325 MG TAB PO PRN (15:49)
--- NOTE | 2016-06-16 16:04 | CONS ---
Date/Time of Note Date/Time of Note DATE: 06/16/16 TIME: 15:50 Assessment/Plan Assessment/Plan Additional Assessment/Plan Assessment Abdominal pain/transaminitis * Cholelithiasis r/o Choledocholithiasis * Hx of multiple KNITTED GARMENT FINISHER shunts Plan * MRCP * Liver function test * Adequate pain control/hydration Consultation Date/Type/Reason Admit Date/Time Date of Consultation: June 16, 2016 Type of Consultation: Gastroenterology Reason for Consultation abnormal liver enzymes,abdominal pain Referring Provider: MARIA DEL ROSARIO FLORES MD Hx of Present Illness 36 year old female consulted emergency room because of abdominal pain.Patient was previously seen at ER last 06/08 and 06/14 was diagnosed with chololithiasis.Discharged improved.Few hours prior to consult patient had right upper quadrant pain sharp radiating to back with associated nausea but no vomiting,fever,nor jaundice. Past medical history of KNITTED GARMENT FINISHER shunt surgery Emergency room course revealed elevated WBC 10.2,Liver enzymes elevated Total bilirubin 3.1,Direct bilirubin 2,2,AST 327,ALT 500.Ultrasound revealed Gallstones in the gallbladder. No gallbladder wall thickening or pericholecystic fluid. No biliary dilatation or right hydronephrosis.Skull Xray Right parietal ventriculostomy CSF shunting catheter.,Presently patient denies any abdominal pain nausea or vomiting and awaiting MRCP Constitutional: improved, no complaints Eyes: no complaints ENT: no complaints Respiratory: no complaints Cardiovascular: no complaints Gastrointestinal: flatus, pain Genitourinary: no complaints Musculoskeletal: no complaints Skin: no complaints Neurologic: no complaints Endocrine: no complaints Lymphatic: no complaints Psychological: nl mood/affect, no complaints Immunologic: no complaints Past Medical History Medical History: gallstones Past Surgical History 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) Family History Significant Family History: no pertinent family hx Social History Alcohol Use: rarely Smoking Status: Never smoker Drug Use: none Exam/Review of Systems Vital Signs Vitals Vital Signs Date Time Temp Pulse Resp B/P Pulse Ox O2 Delivery O2 Flow Rate FiO2 06/16/16 09:36 98.2 89 17 126/81 97 Room Air Intake and Output 06/15/16 06/15/16 06/16/16 15:00 23:00 07:00 Intake Total 1000 ml Balance 1000 ml Exam Constitutional: alert, oriented, well developed Psych: nl mood/affect, no complaints Head: atraumatic, normocephalic Eyes: EOMI, PERRL, nl conjunctiva, nl lids, nl sclera ENMT: nl external ears & nose, nl lips & teeth, nl nasal mucosa & septum Neck: non-tender, supple Respiratory: clear to auscultation, normal air movement Cardiovascular: nl pulses, regular rate and rhythm Gastrointestinal: nl liver, spleen, non-tender, soft Musculoskeletal: nl extremities to inspection, nl gait and stance Extremities: normal pulses Neurological: SPRAY STAINER II-XII intact, nl mental status, nl speech, nl strength Skin: nl turgor, No rash or lesions Lymph: nl lymph nodes Results Result Diagram: 06/15/16215406/15/162154 Results 24 hrs Laboratory Tests Test 06/15/16 21:55 White Blood Count 10.3 # Red Blood Count 5.04 Hemoglobin 13.2 Hematocrit 39.9 Mean Corpuscular Volume 79.2 L Mean Corpuscular Hemoglobin 26.2 L Mean Corpuscular Hemoglobin Concent 33.1 Red Cell Distribution Width 16.0 H Platelet Count 378 Mean Platelet Volume 9.2 Neutrophils % 73.5 Lymphocytes % 15.5 Monocytes % 6.0 Eosinophils % 3.9 Basophils % 0.6 Nucleated Red Blood Cells % 0.0 Neutrophils # 7.6 H Lymphocytes # 1.6 Monocytes # 0.6 Eosinophils # 0.4 Basophils # 0.1 Nucleated Red Blood Cells # 0.0 Sodium Level 139 Potassium Level 4.0 Chloride Level 102 Carbon Dioxide Level 24 Anion Gap 17 H Blood Urea Nitrogen 10 Creatinine 0.82 Glucose Level 117 Calcium Level 9.2 Total Bilirubin 3.1 #H Direct Bilirubin 2.20 #H Indirect Bilirubin 0.9 Aspartate Amino Transf (AST/SGOT) 327 H Alanine Aminotransferase (ALT/SGPT) 500 H Alkaline Phosphatase 118 # Total Protein 8.5 H Albumin 4.1 Globulin 4.40 H Albumin/Globulin Ratio 0.93 Lipase 59 Medications Medications Current Medications Potassium Chloride/Dextrose/ Sod Cl 1,000 ml @ 125 mls/hr Q8H IV Last administered on 06/16/16t 15:41; Admin Dose 125 MLS/HR; Start 06/16/16 at 02:30 Piperacillin Sod/ Tazobactam Sod (Zosyn 3.375gm/ 100 ml (Pmx)) 100 ml @ 200 mls /hr Q8H IVPB Last administered on 06/16/16 12:30; Admin Dose 200 MLS/HR; Start 06/16/16 at 02:30 Morphine Sulfate (morphine) 4 mg Q4H PRN IV pain Last administered on 06/16/16 15:41; Admin Dose 4 MG; Start 06/16/16 at 02:30 Ondansetron HCl (Zofran Inj) 4 mg Q4H PRN IV nausea Last administered on 08:24; Admin Dose 4 MG; Start 06/16/16 at 02:30 Acetaminophen (Tylenol Tab) 650 mg Q4H PRN PO pain/fever; Start 06/16/16 at 02: 30 Hydralazine HCl (Apresoline) 25 mg Q6H PRN PO sbp>160; Start 06/16/16 at 02:30 PRABHU LEA MD June 16, 2016 16:00
[2016-06-16 16:28] VITALS: Ht 149.9 cm; Wt 65.0 kg
[2016-06-16 16:38] VITALS: BP 147/85; RESP 20
--- NOTE | 2016-06-16 17:16 | PN ---
Date/Time of Note Date/Time of Note DATE: 06/16/16 TIME: 17:13 Assessment/Plan VTE Prophylaxis VTE Prophylaxis Intervention: SCD's Lines/Catheters IV Catheter Type (from Nrsg): Peripheral IV Assessment/Plan Assessment/Plan 1. concerned about acute cholecystitis vs biliary colic 2. riri out acute choledocholithiasis 3. acute transaminitis 4. acute intractable abdominal pain Plan: IV abx zosyn, s/p G surg consult MRCP to rule out CBD stone, GI has been consulted due to elevated LFTs , BP stable IVF D51/2 NS with KCL at 125 cc/hr SCD for DVT prophylaxis Subjective 24 Hr Interval Summary Free Text/Dictation still c/o pain, Plan for MRCP today Exam/Review of Systems Vital Signs Vitals Vital Signs Date Time Temp Pulse Resp B/P Pulse Ox O2 Delivery O2 Flow Rate FiO2 06/16/16 16:38 98.1 99 20 147/85 97 06/16/16 15:45 Room Air Intake and Output 06/15/16 06/15/16 06/16/16 15:00 23:00 07:00 Intake Total 1000 ml Balance 1000 ml Exam GENERAL: Pleasant young woman in no acute distress, alert and oriented x3. HEENT: Normocephalic, atraumatic without evident scleral icterus, perioral cyanosis. Mucous membranes are moist. NECK: Soft and supple without masses. No evidence of jugular venous distention or carotid bruits. CHEST: Clear to auscultation and percussion bilaterally. HEART: Regular rate and rhythm. S1, S2. No added sounds. ABDOMEN: Soft. Tender in the right upper quadrant. No palpable hepatosplenomegaly. EXTREMITIES: Without clubbing, cyanosis, or edema. SKIN: Without rashes. NEUROLOGIC: Grossly intact Results Result Diagram: 06/15/16215406/15/162154 Results 24 hrs Laboratory Tests Test 06/15/16 21:55 White Blood Count 10.3 # Red Blood Count 5.04 Hemoglobin 13.2 Hematocrit 39.9 Mean Corpuscular Volume 79.2 L Mean Corpuscular Hemoglobin 26.2 L Mean Corpuscular Hemoglobin Concent 33.1 Red Cell Distribution Width 16.0 H Platelet Count 378 Mean Platelet Volume 9.2 Neutrophils % 73.5 Lymphocytes % 15.5 Monocytes % 6.0 Eosinophils % 3.9 Basophils % 0.6 Nucleated Red Blood Cells % 0.0 Neutrophils # 7.6 H Lymphocytes # 1.6 Monocytes # 0.6 Eosinophils # 0.4 Basophils # 0.1 Nucleated Red Blood Cells # 0.0 Sodium Level 139 Potassium Level 4.0 Chloride Level 102 Carbon Dioxide Level 24 Anion Gap 17 H Blood Urea Nitrogen 10 Creatinine 0.82 Glucose Level 117 Calcium Level 9.2 Total Bilirubin 3.1 #H Direct Bilirubin 2.20 #H Indirect Bilirubin 0.9 Aspartate Amino Transf (AST/SGOT) 327 H Alanine Aminotransferase (ALT/SGPT) 500 H Alkaline Phosphatase 118 # Total Protein 8.5 H Albumin 4.1 Globulin 4.40 H Albumin/Globulin Ratio 0.93 Lipase 59 Medications Medications Current Medications Potassium Chloride/Dextrose/ Sod Cl 1,000 ml @ 125 mls/hr Q8H IV Last administered on 06/16/16 15:41; Admin Dose 125 MLS/HR; Start 06/16/16 at 02:30 Piperacillin Sod/ Tazobactam Sod (Zosyn 3.375gm/ 100 ml (Pmx)) 100 ml @ 200 mls /hr Q8H IVPB Last administered on 06/16/16 12:30; Admin Dose 200 MLS/HR; Start 06/16/16 at 02:30 Morphine Sulfate (morphine) 4 mg Q4H PRN IV pain Last administered on 06/16/16 15:41; Admin Dose 4 MG; Start 06/16/16 at 02:30 Ondansetron HCl (Zofran Inj) 4 mg Q4H PRN IV nausea Last administered on 08:24; Admin Dose 4 MG; Start 06/16/16 at 02:30 Acetaminophen (Tylenol Tab) 650 mg Q4H PRN PO pain/fever Last administered on 15:49; Admin Dose 650 MG; Start 06/16/16 at 02:30 Hydralazine HCl (Apresoline) 25 mg Q6H PRN PO sbp>160; Start 06/16/16 at 02:30 MARIA DEL ROSARIO FLORES MD June 16, 2016 17:16
[2016-06-16] MEDS ORDERED: morphine 4 MG/ML VIAL IV PRN (18:30)
[2016-06-16 19:45] VITALS: BP 138/80; RESP 20
[2016-06-16] MEDS: morphine 2 MG INJ IV PRN (22:04)
[2016-06-17] VITALS (8 sets, daily range): BP systolic 122–136; BP diastolic 69–76; PULSE 72–88; RESP 16–26
[2016-06-17] MEDS: D5W-0.45 NACL + KCL 40 MEQ 1,000 ML IV SCH ×3 (02:30→17:30)
[2016-06-17] MEDS: PIPER-TAZO 3.375 GM IV (PMX) 100 ML IVPB SCH ×3 (02:59→17:29)
[2016-06-17] MEDS: morphine 2 MG INJ IV PRN ×3 (03:10→15:38)
[2016-06-17] MEDS: ONDANSETRON 4 MG INJ IV PRN ×3 (03:10→13:53)
[2016-06-17 05:03] LABS: ADD SCAN DIFF NO
[2016-06-17 05:24] LABS: BASOPHILS % 0.4 % (0.0-2.0); EOSINOPHILS # 0.2 10^3/ul (0.0-0.5); EOSINOPHILS % 2.4 % (0.0-7.0); HEMATOCRIT 40.3 % (37.0-47.0); HEMOGLOBIN 12.8 g/dl (12.0-16.0); LYMPHOCYTES # 1.3 10^3/ul (0.8-2.9); LYMPHOCYTES % 13.3 % (15.0-51.0); MEAN CORPUSCULAR HEMOGLOBIN 25.4 pg (29.0-33.0); MEAN CORPUSCULAR HGB CONC 31.8 g/dl (32.0-37.0); MEAN PLATELET VOLUME 9.8 fl (7.4-10.4); MONOCYTE # 0.9 10^3/ul (0.3-0.9); MONOCYTES % 8.6 % (0.0-11.0); NEUTROPHIL # 7.4 10^3/ul (1.6-7.5); NEUTROPHILS % 74.8 % (39.0-77.0); PLATELET COUNT 344 10^3/UL (140-415); RED BLOOD COUNT 5.04 10^6/ul (4.20-5.40); RED CELL DISTRIBUTION WIDTH 17.1 % (11.5-14.5); WHITE BLOOD COUNT 9.9 10^3/ul (4.8-10.8)
[2016-06-17 05:27] LABS: INR 0.98
[2016-06-17 05:28] LABS: PARTIAL THROMBOPLASTIN TIME 29.2 Sec (25.0-35.0)
[2016-06-17 05:29] LABS: ALANINE AMINOTRANSFERASE 300 IU/L (13-69); ALBUMIN 3.5 g/dl (3.3-4.9); ALBUMIN/GLOBULIN RATIO 0.87; ALKALINE PHOSPHATASE 122 IU/L (42-121); ANION GAP 12 (8-16); ASPARTATE AMINO TRANSFERASE 98 IU/L (15-46); BILIRUBIN,INDIRECT 0.5 mg/dl (0-1.1); BILIRUBIN,TOTAL 2.2 mg/dl (0.2-1.3); CALCIUM 8.8 mg/dl (8.4-10.2); CARBON DIOXIDE 23 mmol/L (21-31); CHLORIDE 107 mmol/L (97-110); CREATININE 0.71 mg/dl (0.44-1.00); GLUCOSE 103 mg/dl (70-220); POTASSIUM 4.4 mmol/L (3.5-5.1); SODIUM 138 mmol/L (135-144); TOTAL PROTEIN 7.5 g/dl (6.1-8.1)
[2016-06-17 05:36] LABS: BLOOD UREA NITROGEN < 2 mg/dl (7-20)
--- NOTE | 2016-06-17 08:55 | RADRPT ---
PROCEDURE: MRCP. CLINICAL INDICATION: Abdominal pain. TECHNIQUE: MRCP was performed on the a high-resolution, high Jyothi field strength scanner. Patien t was examined without contrast. 3-D coronal rotating MIP images of the biliary tree are available for review. COMPARISON: Right upper quadrant ultrasound 06/15/2016. FINDINGS: Gallbladder is remarkable for multiple sub centimeter gallstones. There is no intrahepatic biliary d uctal dilatation. There is mild CBD dilatation measures up to 8 mm. There are a few small CBD ston es in the distal CBD. There is no stricture or obstruction. The pancreatic duct, as visualized, is equally unremarkable. IMPRESSION: 1. Multiple sub centimeter gallstones with no evidence of pericholecystic inflammatory changes. 2. Mildly dilated common bile duct measures up to 8 mm with a few small choledocholithiasis in the distal CBD. RPTAT: BB .Liza Markham MD, MD Date Time Electronically viewed and signed by .Liza Markham MD, on 06/17/2016 08:55 .O/
[2016-06-17] MEDS ORDERED: INDOMETHACIN 50 MG SUPP PR ONE ×2 (11:30→13:00)
--- NOTE | 2016-06-17 13:09 | PN ---
Date/Time of Note Date/Time of Note DATE: 06/17/16 TIME: 13:06 Assessment/Plan Lines/Catheters IV [facility]from [facility] Peripheral IV Assessment/Plan Assessment/Plan 41F with symptomatic cholelithiasis choledocholithiasis * MRCP confirms choledocholithiasis * LFTs slightly lower, but still elevated * Patient scheduled for ERCP this evening * Will tentatively schedule patient for laparoscopic cholecystectomy tomorrow * Obtain medical clearance The above was discussed with the patient and her at the bedside. I discussed all risks and benefits of the surgical procedure including conversion to open and dysfunction, occlusion and infection of DIET CONSULTANT shunt. They fully understand and are agreeable to the treatment plan as outlined. Subjective 24 Hr Interval Summary Stable overnight. Pain is controlled. Afebrile. Exam/Review of Systems Vital Signs Vitals Vital Signs Date Time Temp Pulse Resp B/P Pulse Ox O2 Delivery O2 Flow Rate FiO2 06/17/16 07:10 98.4 99 16 95 06/16/16 15:45 Room Air Intake and Output 06/16/16 06/16/16 06/17/16 15:00 23:00 07:00 Intake Total 225 ml 1075 ml Balance 225 ml 1075 ml Exam Free Text/Dictation GENERAL: Awake, alert and oriented x3. No acute distress SKIN: No jaundice HEENT: No scleral icterus. CHEST: Clear to auscultation bilaterally. HEART: Regular rate and rhythm. S1, S2. No murmurs appreciated. ABDOMEN: Soft, non-distended, bowel sounds present. Nontender to palpation. Negative Vargas's sign. There are multiple healed antonio-umbilical and right upper quadrant incisions from prior surgery. EXTREMITIES: Without clubbing, cyanosis, or edema. Results Result Diagram: 06/17/16 0440 06/17/16 0440 Procedures Procedures PROCEDURE: MRCP. CLINICAL INDICATION: Abdominal pain. TECHNIQUE: MRCP was performed on the a high-resolution, high Jyothi field strength scanner. Patient was examined without contrast. 3-D coronal rotating MIP images of the biliary tree are available for review. COMPARISON: Right upper quadrant ultrasound 06/15/2016. FINDINGS: Gallbladder is remarkable for multiple sub centimeter gallstones. There is no intrahepatic biliary ductal dilatation. There is mild CBD dilatation measures up to 8 mm. There are a few small CBD stones in the distal CBD. There is no stricture or obstruction. The pancreatic duct, as visualized, is equally unremarkable. IMPRESSION: 1. Multiple sub centimeter gallstones with no evidence of pericholecystic inflammatory changes. 2. Mildly dilated common bile duct measures up to 8 mm with a few small choledocholithiasis in the distal CBD. RPTAT: BB .Liza Markham MD, MD Date Time Electronically viewed and signed by .Liza Markham MD, on 06/17/2016 08:55 .O/ CC: CARMEN HOLLINS MD, MICHAEL A. MD June 17, 2016 13:09
--- NOTE | 2016-06-17 17:13 | PN ---
Date/Time of Note Date/Time of Note DATE: 06/17/16 TIME: 17:12 Assessment/Plan VTE Prophylaxis VTE Prophylaxis Intervention: SCD's Lines/Catheters IV Catheter Type (from Nrsg): Peripheral IV Assessment/Plan Assessment/Plan 1Symptomatic gallstones with acute choledocholithiasis 2.MRCP showed distal CBD stone 3. acute transaminitis 4. acute intractable abdominal pain Plan: IV abx zosyn, Plan for ERCP today by GI G surg on board, plan for lap Edith tomorrow SCD for DVT prophylaxis Subjective 24 Hr Interval Summary Free Text/Dictation c/o abd pain, MRCP showed Distal CBD stone, plan for ERCP today Exam/Review of Systems Vital Signs Vitals Vital Signs Date Time Temp Pulse Resp B/P Pulse Ox O2 Delivery O2 Flow Rate FiO2 06/17/16 07:10 98.4 99 16 95 06/16/16 15:45 Room Air Intake and Output 06/16/16 06/16/16 06/17/16 15:00 23:00 07:00 Intake Total 225 ml 1075 ml Balance 225 ml 1075 ml Results Result Diagram: 06/17/16 0440 06/17/16 0440 Results 24 hrs Laboratory Tests Test 06/17/16 04:40 White Blood Count 9.9 Red Blood Count 5.04 Hemoglobin 12.8 Hematocrit 40.3 Mean Corpuscular Volume 80.0 L Mean Corpuscular Hemoglobin 25.4 L Mean Corpuscular Hemoglobin Concent 31.8 L Red Cell Distribution Width 17.1 H Platelet Count 344 Mean Platelet Volume 9.8 Neutrophils % 74.8 Lymphocytes % 13.3 L Monocytes % 8.6 Eosinophils % 2.4 Basophils % 0.4 Nucleated Red Blood Cells % 0.0 Neutrophils # 7.4 Lymphocytes # 1.3 Monocytes # 0.9 Eosinophils # 0.2 Basophils # 0.0 Nucleated Red Blood Cells # 0.0 Prothrombin Time 13.0 Prothrombin Time Ratio 1.0 INR International Normalized Ratio 0.98 Activated Partial Thromboplast Time 29.2 Sodium Level 138 Potassium Level 4.4 Chloride Level 107 Carbon Dioxide Level 23 Anion Gap 12 Blood Urea Nitrogen < 2 L Creatinine 0.71 Glucose Level 103 Calcium Level 8.8 Total Bilirubin 2.2 H Direct Bilirubin 1.70 #H Indirect Bilirubin 0.5 Aspartate Amino Transf (AST/SGOT) 98 H Alanine Aminotransferase (ALT/SGPT) 300 H Alkaline Phosphatase 122 H Total Protein 7.5 # Albumin 3.5 Globulin 4.00 H Albumin/Globulin Ratio 0.87 Lipase 40 Medications Medications Current Medications Potassium Chloride/Dextrose/ Sod Cl 1,000 ml @ 125 mls/hr Q8H IV Last administered on 06/17/16 05:21; Admin Dose 125 MLS/HR; Start 06/16/16 at 02:30 Piperacillin Sod/ Tazobactam Sod (Zosyn 3.375gm/ 100 ml (Pmx)) 100 ml @ 200 mls /hr Q8H IVPB Last administered on 06/17/16 10:09; Admin Dose 200 MLS/HR; Start 06/16/16 at 02:30 Ondansetron HCl (Zofran Inj) 4 mg Q4H PRN IV nausea Last administered on 13:53; Admin Dose 4 MG; Start 06/16/16 at 02:30 Acetaminophen (Tylenol Tab) 650 mg Q4H PRN PO pain/fever Last administered on 15:49; Admin Dose 650 MG; Start 06/16/16 at 02:30 Hydralazine HCl (Apresoline) 25 mg Q6H PRN PO sbp>160; Start 06/16/16 at 02:30 Morphine Sulfate (morphine) 2 mg Q4H PRN IV PAIN Last administered on 06/17/16 15:38; Admin Dose 2 MG; Start 06/16/16 at 17:30 MARIA DEL ROSARIO FLORES MD June 17, 2016 17:13
[2016-06-17] MEDS ORDERED: PROPOFOL 20 ML ONE (19:02)
[2016-06-17] MEDS ORDERED: SUCCINYLCHOLINE CHLORIDE 100 MG/5 ML SYG IV ONE (19:02)
[2016-06-17] MEDS ORDERED: ROCURONIUM 50 MG INJ ONE (19:02)
[2016-06-17] MEDS ORDERED: LIDOCAINE 2% (SDV) 5 ML INJ ONE (19:02)
--- NOTE | 2016-06-17 20:03 | RADRPT ---
Vent Rate: 87 bpm RR Interval: 0 msec IN Interval: 116 msec QRS Duration: 66 msec QT Interval: 344 msec QTC Interval: 413 msec P-R-T Linn: 48 - 24 - 18 degrees Normal sinus rhythm Low voltage QRS Cannot rule out Anterior infarct , age undetermined Abnormal ECG Electronically Signed By: Alonso Birmingham [id number]
[2016-06-18] VITALS (7 sets, daily range): BP systolic 120–134; BP diastolic 59–104; PULSE 97–138; RESP 14–18
[2016-06-18] MEDS: D5W-0.45 NACL + KCL 40 MEQ 1,000 ML IV SCH ×3 (02:30→17:43)
[2016-06-18] MEDS: PIPER-TAZO 3.375 GM IV (PMX) 100 ML IVPB SCH ×3 (02:40→17:44)
[2016-06-18 06:20] LABS: ADD SCAN DIFF NO
[2016-06-18 06:23] LABS: BASOPHILS % 0.4 % (0.0-2.0); EOSINOPHILS # 0.1 10^3/ul (0.0-0.5); EOSINOPHILS % 1.2 % (0.0-7.0); HEMATOCRIT 38.9 % (37.0-47.0); HEMOGLOBIN 12.7 g/dl (12.0-16.0); LYMPHOCYTES # 1.3 10^3/ul (0.8-2.9); LYMPHOCYTES % 12.2 % (15.0-51.0); MEAN CORPUSCULAR HEMOGLOBIN 25.9 pg (29.0-33.0); MEAN CORPUSCULAR HGB CONC 32.6 g/dl (32.0-37.0); MEAN CORPUSCULAR VOLUME 79.4 fl (82.0-101.0); MEAN PLATELET VOLUME 9.5 fl (7.4-10.4); MONOCYTE # 0.7 10^3/ul (0.3-0.9); MONOCYTES % 6.9 % (0.0-11.0); NEUTROPHIL # 8.1 10^3/ul (1.6-7.5); NEUTROPHILS % 78.9 % (39.0-77.0); PLATELET COUNT 346 10^3/UL (140-415); RED CELL DISTRIBUTION WIDTH 16.7 % (11.5-14.5); WHITE BLOOD COUNT 10.2 10^3/ul (4.8-10.8)
[2016-06-18 06:39] LABS: INR 0.94; PROTIME 12.6 Sec (12.2-14.2)
[2016-06-18 06:40] LABS: PARTIAL THROMBOPLASTIN TIME 31.1 Sec (25.0-35.0)
[2016-06-18 06:57] LABS: ALBUMIN 3.7 g/dl (3.3-4.9); ALBUMIN/GLOBULIN RATIO 0.92; BILIRUBIN,INDIRECT 0.5 mg/dl (0-1.1); BILIRUBIN,TOTAL 0.5 mg/dl (0.2-1.3); CREATININE 0.74 mg/dl (0.44-1.00); POTASSIUM 4.3 mmol/L (3.5-5.1); TOTAL PROTEIN 7.7 g/dl (6.1-8.1)
--- NOTE | 2016-06-18 09:14 | PN ---
Date/Time of Note Date/Time of Note DATE: 06/18/16 TIME: 09:12 Assessment/Plan Lines/Catheters [facility] Saline Lock Assessment/Plan Assessment/Plan 41F with symptomatic cholelithiasis, choledocholithiasis * Status post ERCP with removal of common bile duct stones * Total bilirubin normal. Transaminases improving. * For cholecystectomy today The above was discussed with the patient and her at the bedside. I discussed all risks and benefits of the surgical procedure including conversion to open and dysfunction, occlusion and infection of CLOTHING CUTTER shunt. They fully understand and are agreeable to the treatment plan as outlined. Subjective 24 Hr Interval Summary Feeling better. Denies abdominal pain. Status post ERCP. Afebrile. Exam/Review of Systems Vital Signs Vitals Vital Signs Date Time Temp Pulse Resp B/P Pulse Ox O2 Delivery O2 Flow Rate FiO2 06/18/16 07:40 98.1 116 16 121/76 95 Room Air Intake and Output 06/17/16 06/17/16 06/18/16 15:00 23:00 07:00 Intake Total 100 ml 1100 ml 280 ml Balance 100 ml 1100 ml 280 ml Exam Free Text/Dictation GENERAL: Awake, alert and oriented x3. No acute distress SKIN: No jaundice HEENT: No scleral icterus. CHEST: Clear to auscultation bilaterally. HEART: Regular rate and rhythm. S1, S2. No murmurs appreciated. ABDOMEN: Soft, non-distended, bowel sounds present. Nontender to palpation. Negative Vargas's sign. There are multiple healed antonio-umbilical and right upper quadrant incisions from prior surgery. EXTREMITIES: Without clubbing, cyanosis, or edema. Results Result Diagram: 06/18/16 0604 06/18/16 0604 MARILEE HATFIELD MD June 18, 2016 09:14
--- NOTE | 2016-06-18 09:14 | HPN ---
Date/Time of Note Date/Time of Note DATE: 06/18/16 TIME: 09:14 Interval H&P Admission Note Pt. seen H&P reviewed: No system changes MARILEE HATFIELD MD June 18, 2016 09:14
--- NOTE | 2016-06-18 10:50 | PN ---
Date/Time of Note Date/Time of Note DATE: 06/18/16 TIME: 10:48 Assessment/Plan VTE Prophylaxis VTE Prophylaxis Intervention: SCD's Lines/Catheters IV C[facility] Type (from [facility] Saline Lock Assessment/Plan Assessment/Plan 1Symptomatic gallstones with acute choledocholithiasis 2.MRCP showed acute choledocholithiasis s/p ERCP with removal of stones 3. acute transaminitis improving 4. acute intractable abdominal pain Plan: IV abx zosyn, S/p ERCP with removal of CBD stones Plan for Cholecystectomy by G surg today 6 pm SCD for DVT prophylaxis Subjective 24 Hr Interval Summary Free Text/Dictation no acute events, LFTs improving,S/p ERCP with removal of stones, Plan for Lap danielle today Exam/Review of Systems Vital Signs Vitals Vital Signs Date Time Temp Pulse Resp B/P Pulse Ox O2 Delivery O2 Flow Rate FiO2 06/18/16 07:40 98.1 116 16 121/76 95 Room Air Intake and Output 06/17/16 06/17/16 06/18/16 15:00 23:00 07:00 Intake Total 100 ml 1100 ml 280 ml Balance 100 ml 1100 ml 280 ml Exam GENERAL: Pleasant young woman in no acute distress, alert and oriented x3. HEENT: Normocephalic, atraumatic without evident scleral icterus, perioral cyanosis. Mucous membranes are moist. NECK: Soft and supple without masses. No evidence of jugular venous distention or carotid bruits. CHEST: Clear to auscultation and percussion bilaterally. HEART: Regular rate and rhythm. S1, S2. No added sounds. ABDOMEN: Soft. Tender in the right upper quadrant. No palpable hepatosplenomegaly. EXTREMITIES: Without clubbing, cyanosis, or edema. SKIN: Without rashes. NEUROLOGIC: Grossly intact Results Result Diagram: 06/18/16 0604 06/18/16 0604 Results 24 hrs Laboratory Tests Test 06/18/16 06:04 White Blood Count 10.2 Red Blood Count 4.90 Hemoglobin 12.7 Hematocrit 38.9 Mean Corpuscular Volume 79.4 L Mean Corpuscular Hemoglobin 25.9 L Mean Corpuscular Hemoglobin Concent 32.6 Red Cell Distribution Width 16.7 H Platelet Count 346 Mean Platelet Volume 9.5 Neutrophils % 78.9 H Lymphocytes % 12.2 L Monocytes % 6.9 Eosinophils % 1.2 Basophils % 0.4 Nucleated Red Blood Cells % 0.0 Neutrophils # 8.1 H Lymphocytes # 1.3 Monocytes # 0.7 Eosinophils # 0.1 Basophils # 0.0 Nucleated Red Blood Cells # 0.0 Prothrombin Time 12.6 Prothrombin Time Ratio 1.0 INR International Normalized Ratio 0.94 Activated Partial Thromboplast Time 31.1 Sodium Level 137 Potassium Level 4.3 Chloride Level 105 Carbon Dioxide Level 24 Anion Gap 12 Blood Urea Nitrogen 4 L Creatinine 0.74 Glucose Level 95 Calcium Level 9.0 Total Bilirubin 0.5 Direct Bilirubin 0.00 # Indirect Bilirubin 0.5 Aspartate Amino Transf (AST/SGOT) 100 H Alanine Aminotransferase (ALT/SGPT) 243 H Alkaline Phosphatase 120 Total Protein 7.7 Albumin 3.7 Globulin 4.00 H Albumin/Globulin Ratio 0.92 Medications Medications Current Medications Potassium Chloride/Dextrose/ Sod Cl 1,000 ml @ 125 mls/hr Q8H IV Last administered on 06/17/16 17:30; Admin Dose 125 MLS/HR; Start 06/16/16 at 02:30 Piperacillin Sod/ Tazobactam Sod (Zosyn 3.375gm/ 100 ml (Pmx)) 100 ml @ 200 mls /hr Q8H IVPB Last administered on 06/18/16 02:40; Admin Dose 200 MLS/HR; Start 06/16/16 at 02:30 Ondansetron HCl (Zofran Inj) 4 mg Q4H PRN IV nausea Last administered on 13:53; Admin Dose 4 MG; Start 06/16/16 at 02:30 Acetaminophen (Tylenol Tab) 650 mg Q4H PRN PO pain/fever Last administered on 15:49; Admin Dose 650 MG; Start 06/16/16 at 02:30 Hydralazine HCl (Apresoline) 25 mg Q6H PRN PO sbp>160; Start 06/16/16 at 02:30 Morphine Sulfate (morphine) 2 mg Q4H PRN IV PAIN Last administered on 06/17/16 15:38; Admin Dose 2 MG; Start 06/16/16 at 17:30 MARIA DEL ROSARIO FLORES MD June 18, 2016 10:50
--- NOTE | 2016-06-18 11:01 | RADRPT ---
PROCEDURE: Intraoperative imaging for ERCP with fluoroscopy. CLINICAL INDICATION: Right upper quadrant pain. Intraoperative. TECHNIQUE: 4 images of the right upper quadrant of the abdomen were obtained in the operating room with an image intensifier. No radiologist was in attendance. COMPARISON: MRCP dated 06/16/2016. FINDINGS: Images demonstrate the endoscope in position and contrast injected into the common bile duct. Multi ple filling defects are present in the common bile duct and gallbladder consistent with gallstones. A balloon sweep was made. IMPRESSION: 1. ERCP as described above. RPTAT: QQ .Mariano Farnsworth MD, MD Date Time Electronically viewed and signed by .Mariano Farnsworth MD, MD on 06/18/2016 11:01 .R/
[2016-06-18] MEDS: ONDANSETRON 4 MG INJ IV PRN (11:03)
--- NOTE | 2016-06-18 12:10 | RADRPT ---
PROCEDURE: CT Abdomen and Pelvis without contrast. CLINICAL INDICATION: Abdominal and pelvic pain. Preoperative evaluation of location of ventriculop eritoneal shunt. TECHNIQUE: CT scan of the abdomen and pelvis without contrast was performed. Coronal and sagittal reformatted images were obtained from the axial source images. Images were reviewed on a [employer] PACS workstation. Total exam DLP is 703.97 mGy-cm. CTDIvol is 11.98 mGy. One or more of the f ollowing dose reduction techniques were used: Automated exposure control, adjustment of the mA and/o r kV according to patient size, use of iterative reconstruction technique. COMPARISON: Right upper quadrant abdomen ultrasound dated 06/15/2016. FINDINGS: The lung bases are normal. There is no pleural effusion. The liver is normal in size and attenuation. There is no focal hepatic lesion. The gallbladder is abnormal with multiple gallstones and sludge. There is a small amount of pneumob kaela. The bile ducts are not dilated. The spleen is normal in size. There is no focal splenic lesion. Both adrenals are normal with no enlargement or mass. The pancreas is unremarkable with no mass or evidence of pancreatitis. There is no renal mass or hydronephrosis. There is no renal calculus or ureteral calculus. The abdominal aorta is not dilated. There is no retroperitoneal lymphadenopathy or mass. There is no pelvic lymphadenopathy. There is a right adnexal cyst measuring 3.9 x 3.1 cm. The bladder and distal ureters are normal. The periappendiceal region is unremarkable with no evidence of appendicitis. The bowel and mesentery are normal. There is a right-sided BUSINESS PLANNING ANALYST shunt catheter with the tip entering the peritoneum on the right side in the region of the rectus muscle laterally approximately 2 cm cep halad to the level of the umbilicus. The tip of the catheter is in the midline pelvis. There is no free fluid or free gas. There are mild degenerative changes of the spine. There is no fracture or lytic lesion. IMPRESSION: 1. Gallstones and sludge in the gallbladder. Small amount of pneumobilia. 2. Right adnexal cyst measuring 3.9 x 3.1 cm. Correlation with ultrasound should be considered. 3. Right-sided BUSINESS PLANNING ANALYST shunt catheter. 4. Mild degenerative changes of the spine. Call report: A call report of the findings was made to Dr. Murphy on 06/18/2016 at 0930 hours. RPTAT: QQ .Mariano Farnsworth MD, Date Time Electronically viewed and signed by .Mariano Farnsworth MD, MD on 06/18/2016 12:10 .R/
--- NOTE | 2016-06-18 17:50 | PN ---
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 Plan * Liver function test monitor * Adequate pain control/hydration * lap cholecystectomy per surgeon Subjective 24 Hr Interval Summary Free Text/Dictation * Course reviewed with RN * patient seen and examined * ERCP/ERS/stone removal 06/17/2016 * dilated CBD 3 small stones * post ERS * post stone removal Exam/Review of Systems Vital Signs Vitals Vital Signs Date Time Temp Pulse Resp B/P Pulse Ox O2 Delivery O2 Flow Rate FiO2 06/18/16 07:40 98.1 116 16 121/76 95 Room Air Intake and Output 06/17/16 06/17/16 06/18/16 15:00 23:00 07:00 Intake Total 100 ml 1100 ml 280 ml Balance 100 ml 1100 ml 280 ml Exam Constitutional: alert, oriented Head: normocephalic Neck: supple Respiratory: clear to auscultation, normal air movement Cardiovascular: nl pulses, regular rate and rhythm Gastrointestinal: non-tender, soft Musculoskeletal: nl extremities to inspection, nl gait and stance Results Result Diagram: 06/18/16 0604 06/18/16 0604 Results 24 hrs Laboratory Tests Test 06/18/16 06:04 White Blood Count 10.2 Red Blood Count 4.90 Hemoglobin 12.7 Hematocrit 38.9 Mean Corpuscular Volume 79.4 L Mean Corpuscular Hemoglobin 25.9 L Mean Corpuscular Hemoglobin Concent 32.6 Red Cell Distribution Width 16.7 H Platelet Count 346 Mean Platelet Volume 9.5 Neutrophils % 78.9 H Lymphocytes % 12.2 L Monocytes % 6.9 Eosinophils % 1.2 Basophils % 0.4 Nucleated Red Blood Cells % 0.0 Neutrophils # 8.1 H Lymphocytes # 1.3 Monocytes # 0.7 Eosinophils # 0.1 Basophils # 0.0 Nucleated Red Blood Cells # 0.0 Prothrombin Time 12.6 Prothrombin Time Ratio 1.0 INR International Normalized Ratio 0.94 Activated Partial Thromboplast Time 31.1 Sodium Level 137 Potassium Level 4.3 Chloride Level 105 Carbon Dioxide Level 24 Anion Gap 12 Blood Urea Nitrogen 4 L Creatinine 0.74 Glucose Level 95 Calcium Level 9.0 Total Bilirubin 0.5 Direct Bilirubin 0.00 # Indirect Bilirubin 0.5 Aspartate Amino Transf (AST/SGOT) 100 H Alanine Aminotransferase (ALT/SGPT) 243 H Alkaline Phosphatase 120 Total Protein 7.7 Albumin 3.7 Globulin 4.00 H Albumin/Globulin Ratio 0.92 Medications Medications Current Medications Potassium Chloride/Dextrose/ Sod Cl 1,000 ml @ 125 mls/hr Q8H IV Last administered on 06/18/16 10:57; Admin Dose 125 MLS/HR; Start 06/16/16 at 02:30 Piperacillin Sod/ Tazobactam Sod (Zosyn 3.375gm/ 100 ml (Pmx)) 100 ml @ 200 mls /hr Q8H IVPB Last administered on 06/18/16 10:56; Admin Dose 200 MLS/HR; Start 06/16/16 at 02:30 Ondansetron HCl (Zofran Inj) 4 mg Q4H PRN IV nausea Last administered on 11:03; Admin Dose 4 MG; Start 06/16/16 at 02:30 Acetaminophen (Tylenol Tab) 650 mg Q4H PRN PO pain/fever Last administered on 15:49; Admin Dose 650 MG; Start 06/16/16 at 02:30 Hydralazine HCl (Apresoline) 25 mg Q6H PRN PO sbp>160; Start 06/16/16 at 02:30 Morphine Sulfate (morphine) 2 mg Q4H PRN IV PAIN Last administered on 06/17/16 15:38; Admin Dose 2 MG; Start 06/16/16 at 17:30 PRABHU LEA MD June 18, 2016 17:50
[2016-06-18] MEDS ORDERED: BUPIVACAINE 0.25%/EPI (SDV) 30 ML INJ ONE (18:16)
[2016-06-18] MEDS ORDERED: PROPOFOL 20 ML ONE (18:50)
[2016-06-18] MEDS ORDERED: LIDOCAINE 1% (MDV) 20 ML INJ ONE (18:51)
[2016-06-18] MEDS ORDERED: MIDAZOLAM 1 MG/ML 2 ML INJ ONE (18:51)
[2016-06-18] MEDS ORDERED: ROCURONIUM 50 MG INJ ONE (18:51)
[2016-06-18] MEDS ORDERED: ROPIVACAINE 0.2% 20 ML VIAL ONE (18:57)
[2016-06-18] MEDS ORDERED: ESMOLOL 10 ML ONE (19:04)
[2016-06-18] MEDS ORDERED: PHENYLephrine (100 MCG/ML) 5ML SYG ONE ×2 (19:12→22:19)
[2016-06-18] MEDS ORDERED: CEFAZOLIN 1 GM INJ ONE (19:13)
[2016-06-18] MEDS ORDERED: HYDROmorphONE 2 MG/ML SYG ONE (20:18)
[2016-06-18] MEDS ORDERED: ONDANSETRON 4 MG INJ ONE (21:16)
[2016-06-18] MEDS ORDERED: DEXAMETHASONE 4 MG/ML 1 ML INJ ONE (21:16)
[2016-06-18] MEDS ORDERED: METOCLOPRAMIDE 10 MG INJ ONE (21:16)
[2016-06-18] MEDS ORDERED: ONDANSETRON 4 MG INJ IV PRN (21:30)
[2016-06-18] MEDS ORDERED: MEPERIDINE 25 MG INJ IV PRN (21:30)
[2016-06-18] MEDS ORDERED: PROCHLORPERAZINE 10 MG INJ IV PRN (21:30)
[2016-06-18] MEDS ORDERED: HYDROmorphONE (0.2 MG/ML) 10ML SYG IV PRN ×3 (21:30)
[2016-06-18] MEDS ORDERED: DIPHENHYDRAMINE 50 MG INJ IV PRN (21:30)
[2016-06-18] MEDS ORDERED: POLYMYXIN/BACITRACIN 1L IRRIG ONE (21:49)
[2016-06-18] MEDS ORDERED: PROPOFOL 100 ML IV SCH (22:45)
--- NOTE | 2016-06-18 23:05 | OPR ---
Date/Time of Note Date/Time of Note DATE: 06/18/16 TIME: 22:40 Operative Report Procedure Date: June 18, 2016 Preoperative Diagnosis 1. Choledocholithiasis 2. Chronic cholecystitis/cholelithiasis Postoperative Diagnosis 1. Choledocholithiasis 2. Active chronic cholecystitis/cholelithiasis 3. Extensive peritoneal adhesions Operation Performed 1. Diagnostic laparoscopy 2. Open subtotal fenestrated cholecystectomy (Modifier 22) 3. Placement of cholecystostomy drain 4. Placement of Ahmet drain 5. Lysis of adhesions Surgeon: MARILEE HATFIELD MD Anesthesia: general Anesthesiologist: RANDA LEACH DO Estimated Blood Loss: 10 - 50 ml's Specimens Subtotal fenestrated cholecystectomy Tubes/Drains 1. 20 Tongan Malecot drain 2. 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 On her most recent presentation the patient was found to have elevated bilirubin levels and transaminases. She was admitted and a diagnosis of symptomatic chronic cholecystitis and cholelithiasis was made as well as choledocholithiasis which was confirmed with MRCP. The patient underwent ERCP with extraction of common bile stones and sphincterotomy. She was then scheduled for laparoscopic cholecystectomy; possible open to prevent further sequelae of gallstone disease which include, but are not limited to: Acute cholecystitis, recurrent choledocholithiasis, gallstone pancreatitis, ascending cholangitis, etc. All risks and benefits of the procedure including, but not limited to: Wound infection, excessive bleeding, postoperative biliary leak, retained common bile duct stone, injury to intra-abdominal organs, conversion to open procedure, etc. were all discussed with the patient and her in extensive detail. We also discussed the risks of BUFFING MACHINE OPERATOR SEMIAUTOMATIC shunt malfunction, dislodgment, and infection. Both the patient and her understood the above and agreed to proceed with the procedure. Informed consent was obtained. Operative\Procedure Findings Severe intra-abdominal adhesions from prior surgeries. Active chronic inflammation of the gallbladder. Adhesions prevented access to the area of Aaron's pouch and the cystic duct. Therefore, subtotal fenestrated cholecystectomy was performed. Procedure Description The patient was operating room and placed supine on the operating table. Bilateral sequential compression devices were placed on both lower extremities. A dose of broad-spectrum perioperative intravenous antibiotics was given. After the induction of smooth general endotracheal anesthesia the patient's abdomen was prepped and draped in the standard surgical fashion. The patient had multiple abdominal incisions diffusely from prior surgeries. A CT scan was performed preoperatively to map the trajectory of her BUFFING MACHINE OPERATOR SEMIAUTOMATIC shunt. After performance of the surgical timeout a [12 mm] incision was made in the inferior umbilicus. The incision was anesthetized with 0.25% Marcaine prior to incision. Incision was taken down through the skin and subcutaneous tissues using blunt dissection to the level of the anterior rectus fascia. Anterior rectus fascia was grasped between 2 kamini clamps and incised using an 11 blade scalpel. Stay sutures of 0 Vicryl were placed on either side of the fascia. Peritoneum was then grasped between 2 Tara clamps and incised with Metzenbaum scissors. Peritoneum was entered and blunt finger sweep was done. There were no adhesions in the immediate vicinity. A Shea trocar was then inserted atraumatically. Pneumoperitoneum was then obtained and a 5 mm 0 laparoscope was placed through the Shea trocar. Diagnostic laparoscopy showed numerous dense adhesions throughout the abdomen. The BUFFING MACHINE OPERATOR SEMIAUTOMATIC shunt was identified entering into the abdomen approximately 2 cm above the umbilicus and to the right of midline. The right upper quadrant, epigastrium and left upper quadrant were unable to be visualized due to severe adhesions. At this point the decision was made to terminate the laparoscopic portion of the procedure and convert to open. Pneumoperitoneum was then released and the Sunshine trocar was withdrawn. A right subcostal incision was then made using a 10 blade scalpel and carried down through the skin and subcutaneous tissues to the level of the fascia. The BUFFING MACHINE OPERATOR SEMIAUTOMATIC shunt was identified in the subcutaneous tissues just lateral to the rectus muscle on the right side. It was preserved throughout the entirety of the procedure. The anterior fascia was incised as well as the muscle using Bovie electrocautery. There was obliteration of the posterior fascia due to adhesions and scarring from a large subcostal incision from prior BUFFING MACHINE OPERATOR SEMIAUTOMATIC shunt placement near the medial aspect of the incision. The peritoneum was then entered atraumatically. There were dense adhesions of the colon and the omentum to the underside of the incision. This prevented adequate exposure of the right upper quadrant. An extensive amount of time above which is usual and customary for procedure of this type was spent to lyse the adhesions. After much tedious dissection finally the fundus of the gallbladder was able to be identified in the right upper quadrant. Was grasped using a Moss clamp. It appeared erythematous with active chronic cholecystitis. Due to severe adhesions the neck of the gallbladder and the infundibulum could not be exposed safely. Therefore, the decision was made to perform a fenestrated subtotal cholecystectomy. The anterior surface of the gallbladder was incised using Bovie electrocautery. Bile was suctioned out. The anterior wall of the gallbladder was then transected using the harmonic scalpel going as low as safely possible towards the infundibulum. Transection was circumferentially done leaving the posterior wall of the gallbladder intact. All stones were removed from the gallbladder using stone forceps. The specimens were passed off the field. The opening of the cystic duct could not be visualized from within the gallbladder. At this point the posterior wall of the gallbladder was cauterized using Bovie electrocautery. Copious amounts of irrigation were then done using double antibiotic containing irrigation. Hemostasis was inspected for and noted to be adequate. A 20 Tongan Malecot drain was then placed into the infundibulum and brought out through a separate stab wound lateral to the incision and secured in place using 2-0 silk suture and connected to a bile bag. A 19 Tongan round Ahmet drain was then placed in the area of the gallbladder fossa. It was brought out through a separate stab incision inferior to the main subcostal incision and secured in place using a 2- 0 nylon suture and hooked up to bulb suction. At this point further irrigation was done with antibiotic irrigation. Hemostasis was inspected for and noted to be adequate. The fascia was then reapproximated using a running looped #1 PDS suture. Further antibiotic irrigation was done in the subcutaneous tissues and the area of the BUFFING MACHINE OPERATOR SEMIAUTOMATIC shunt. The fascia of the infraumbilical laparoscopic incision was reapproximated using 0 Vicryl suture in [id number] fashion. Stay sutures were tied down on top of this. The skin of both incision sites were then reapproximated using skin sridevi. Local anesthesia was injected around the incision sites. Sterile dressings were applied as well as a drain dressings. A TAP block was performed by the anesthesiologist at the conclusion of the procedure. The decision was made by the anesthesiologist to keep the patient intubated overnight. The patient was then transferred to the intensive care unit in stable, but guarded condition. Patient remained stable throughout the procedure. All counts were correct at the end of the case x 2. This procedure required an amount of skill, time and technical effort which was in excess of that which is usual and customary for procedure of this type. Modifier 22 should be applied. MARILEE HATFIELD MD June 18, 2016 23:04
[2016-06-18] MEDS ORDERED: FENTAnyl (DRIP) 1000 mcg/100mL 100 ML IV SCH (23:10)
[2016-06-18] MEDS: SOD CHLORIDE 0.9% 1,000 ML IV SCH (23:34)
[2016-06-18] MEDS: PROPOFOL 100 ML IV SCH (23:35)
[2016-06-18 23:56] LABS: Arterial COHb 0.3 % (0.0-3.0); Arterial Fraction of Oxyhgb 98.1 % (93.0-99.0); Arterial MetHb 0.7 % (0.0-1.5); Arterial Total Hemglobin 12.5 g/dl (12.0-18.0); MODE VENT - AC
[2016-06-19] VITALS (63 sets, daily range): BP systolic 94–153; BP diastolic 51–99; PULSE 51–120; RESP 14–29
--- NOTE | 2016-06-19 00:37 | RADRPT ---
PROCEDURE: XR Chest. CLINICAL INDICATION: Endotracheal tube placement TECHNIQUE: AP Portable chest. COMPARISON: No pertinent prior examinations were submitted for comparison. FINDINGS: The cardiomediastinal silhouette is normal. Lung volumes are diminished, accentuating the pulmonary markings. There is mild hazy opacity at the left lung base. The osseous structures are unremarkab le. An endotracheal tube tip is in the mid trachea. A nasogastric tube tip is within the stomach. IMPRESSION: Mild hazy opacity at the left lung base likely due to effusion and atelectasis. RPTAT: HIKT .Ryan Saavedra MD, MD Date Time Electronically viewed and signed by .Ryan Saavedra MD, on 06/19/2016 00:37 .T/
[2016-06-19] MEDS: PIPER-TAZO 3.375 GM IV (PMX) 100 ML IVPB SCH ×3 (02:09→17:56)
[2016-06-19] MEDS: D5W-0.45 NACL + KCL 40 MEQ 1,000 ML IV SCH (02:30)
[2016-06-19] MEDS: PROPOFOL 100 ML IV SCH (04:22)
[2016-06-19] MEDS: PANTOPRAZOLE 40 MG INJ IV SCH (05:47)
[2016-06-19 06:33] LABS: ADD SCAN DIFF NO
[2016-06-19] MEDS: SOD CHLORIDE 0.9% 1,000 ML IV SCH (06:55)
[2016-06-19 07:07] LABS: BASOPHILS % 0.2 % (0.0-2.0); HEMATOCRIT 31.7 % (37.0-47.0); HEMOGLOBIN 10.5 g/dl (12.0-16.0); LYMPHOCYTES # 1.3 10^3/ul (0.8-2.9); LYMPHOCYTES % 12.3 % (15.0-51.0); MEAN CORPUSCULAR HEMOGLOBIN 26.6 pg (29.0-33.0); MEAN CORPUSCULAR HGB CONC 33.1 g/dl (32.0-37.0); MEAN CORPUSCULAR VOLUME 80.5 fl (82.0-101.0); MEAN PLATELET VOLUME 9.8 fl (7.4-10.4); MONOCYTE # 0.3 10^3/ul (0.3-0.9); MONOCYTES % 3.2 % (0.0-11.0); NEUTROPHIL # 8.7 10^3/ul (1.6-7.5); NEUTROPHILS % 83.9 % (39.0-77.0); PLATELET COUNT 268 10^3/UL (140-415); RED BLOOD COUNT 3.94 10^6/ul (4.20-5.40); RED CELL DISTRIBUTION WIDTH 16.8 % (11.5-14.5); WHITE BLOOD COUNT 10.4 10^3/ul (4.8-10.8)
[2016-06-19 07:17] LABS: INR 1.02; PROTIME 13.4 Sec (12.2-14.2)
[2016-06-19 07:18] LABS: PARTIAL THROMBOPLASTIN TIME 29.2 Sec (25.0-35.0)
[2016-06-19 07:37] LABS: ALBUMIN/GLOBULIN RATIO 0.85; BILIRUBIN,INDIRECT 0.4 mg/dl (0-1.1); BILIRUBIN,TOTAL 0.4 mg/dl (0.2-1.3); CREATININE 0.68 mg/dl (0.44-1.00); POTASSIUM 4.3 mmol/L (3.5-5.1); TOTAL PROTEIN 6.5 g/dl (6.1-8.1)
[2016-06-19] MEDS: HYDROmorphONE 1 MG/ML SYG IV PRN ×2 (07:52→21:33)
--- NOTE | 2016-06-19 08:19 | CONS ---
Date/Time of Note Date/Time of Note DATE: 06/19/16 TIME: 08:16 Consultation Date/Type/Reason Admit Date/Time June 16, 2016 at 01:42 Initial Consult Date 06/16/16 Type of Consultation: Anesthesiology Reason for Consultation Follow up Referring Provider: MARIA DEL ROSARIO FLORES MD 24 HR Interval Summary Free Text/Dictation Pt seen at bedside in ICU is POD#1 for open cholecystectomy and POD#2 for ERCP. She is currently intubated and sedated on mechanical ventilation but opens eyes and responds to commands. She is planned for extubation today. Will follow up. Exam/Review of Systems Vital Signs Vitals Vital Signs Date Time Temp Pulse Resp B/P Pulse Ox O2 Delivery O2 Flow Rate FiO2 06/19/16 07:30 98.8 56 14 113/80 100 Mechanical Ventilator 06/19/16 05:20 30 Intake and Output 06/18/16 06/18/16 06/19/16 15:00 23:00 07:00 Intake Total 100 ml 2350 ml 1389.8 ml Output Total 400 ml 1450 ml Balance 100 ml 1950 ml -60.2 ml Results Result Diagram: 06/19/16 0600 06/19/16 0600 Results 24 hrs Laboratory Tests Test 06/18/16 23:45 06/19/16 06:00 Blood Gas Specimen Source Blood arterial Arterial Blood Date Drawn 06/18/2016 11:40:03 PM Arterial Blood pH (Temp corrected) 7.268 *L Arterial Blood pCO2 (Temp correct) 35.9 Arterial Blood pO2 (Temp corrected) 217.5 H Arterial Blood HCO3 16.0 L Arterial Blood Base Excess -10.0 L Arterial Blood Oxygen Saturation 99.1 H Roel Test N/A Arterial Blood Gas Puncture Site Right Brachial Arterial Blood Carboxyhemoglobin 0.3 Arterial Blood Methemoglobin 0.7 Blood Gas A-a O2 Differential 243.0 H Oxyhemoglobin Percent 98.1 Total Hemoglobin 12.5 Blood Gas Temperature 37.0 Blood Gas Respiration Rate 14.0 Blood Gas Actual Respiration Rate 14 Blood Gas Modality VENT - AC FiO2 70.0 Blood Gas Tidal Volume 450.0 Blood Gas Low PEEP Setting 5.0 Blood Gas Critical Value Read Back MADELAINE RN Blood Gas Notified Whom MA Blood Gas Notified Time 06/18/2016 11:56:36 PM White Blood Count 10.4 Red Blood Count 3.94 L Hemoglobin 10.5 L Hematocrit 31.7 L Mean Corpuscular Volume 80.5 L Mean Corpuscular Hemoglobin 26.6 L Mean Corpuscular Hemoglobin Concent 33.1 Red Cell Distribution Width 16.8 H Platelet Count 268 # Mean Platelet Volume 9.8 Neutrophils % 83.9 H Lymphocytes % 12.3 L Monocytes % 3.2 Eosinophils % 0.0 Basophils % 0.2 Nucleated Red Blood Cells % 0.0 Neutrophils # 8.7 H Lymphocytes # 1.3 Monocytes # 0.3 Eosinophils # 0.0 Basophils # 0.0 Nucleated Red Blood Cells # 0.0 Prothrombin Time 13.4 Prothrombin Time Ratio 1.0 INR International Normalized Ratio 1.02 Activated Partial Thromboplast Time 29.2 Sodium Level 138 Potassium Level 4.3 Chloride Level 111 H Carbon Dioxide Level 18 L Anion Gap 13 Blood Urea Nitrogen 6 L Creatinine 0.68 Glucose Level 138 # Calcium Level 8.0 L Total Bilirubin 0.4 Direct Bilirubin 0.00 Indirect Bilirubin 0.4 Aspartate Amino Transf (AST/SGOT) 86 H Alanine Aminotransferase (ALT/SGPT) 173 H Alkaline Phosphatase 74 Total Protein 6.5 # Albumin 3.0 L Globulin 3.50 H Albumin/Globulin Ratio 0.85 Medications Medications Current Medications Potassium Chloride/Dextrose/ Sod Cl 1,000 ml @ 125 mls/hr Q8H IV Last administered on 06/18/16 10:57; Admin Dose 125 MLS/HR; Start 06/16/16 at 02:30 Piperacillin Sod/ Tazobactam Sod (Zosyn 3.375gm/ 100 ml (Pmx)) 100 ml @ 200 mls /hr Q8H IVPB Last administered on 06/19/16 02:09; Admin Dose 200 MLS/HR; Start 06/16/16 at 02:30 Ondansetron HCl (Zofran Inj) 4 mg Q4H PRN IV nausea Last administered on 11:03; Admin Dose 4 MG; Start 06/16/16 at 02:30 Acetaminophen (Tylenol Tab) 650 mg Q4H PRN PO pain/fever Last administered on 15:49; Admin Dose 650 MG; Start 06/16/16 at 02:30 Hydralazine HCl (Apresoline) 25 mg Q6H PRN PO sbp>160; Start 06/16/16 at 02:30 Morphine Sulfate (morphine) 2 mg Q4H PRN IV PAIN Last administered on 06/17/16 15:38; Admin Dose 2 MG; Start 06/16/16 at 17:30 Ondansetron HCl (Zofran Inj) 4 mg Q6H PRN IV NAUSEA AND/OR VOMITING; Start 06/18 at 22:30 Hydromorphone HCl (Dilaudid) 1 mg Q3 PRN IV PAIN LEVEL 6-10 Last administered on 06/19/16 07:52; Admin Dose 1 MG; Start 06/18/16 at 22:30 Pantoprazole 40 mg 40 mg DAILY@06 IV Last administered on 06/19/16 05:47; Admin Dose 40 MG; Start 06/19/16 at 06:00 Sodium Chloride 1,000 ml @ 125 mls/hr Q8H IV Last administered on 06/19/16 06: 55; Admin Dose 125 MLS/HR; Start 06/18/16 at 22:23 Fentanyl 100 ml @ 2.5 mls/hr TITRATE IV Last administered on 06/18/16 23:35; Admin Dose 2.5 MLS/HR; Start 06/18/16 at 23:10 Propofol (Diprivan) 100 ml @ 1.95 mls/hr Q12H IV Last administered on 04:22; Admin Dose 15.6 MLS/HR; Start 06/18/16 at 23:10 RAVINDRA TAVARES June 19, 2016 08:19
--- NOTE | 2016-06-19 08:42 | CONS ---
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 Nielsen Consultation Date/Type/Reason Admit Date/Time June 16, 2016 at 01:42 Initial Consult Date 06/16/16 Type of Consultation: Gastroenterology Referring Provider: MARIA DEL ROSARIO FLORES MD 24 HR Interval Summary Free Text/Dictation Status post cholecystectomy Intubated Exam/Review of Systems Vital Signs Vitals Vital Signs Date Time Temp Pulse Resp B/P Pulse Ox O2 Delivery O2 Flow Rate FiO2 06/19/16 07:30 98.8 56 14 113/80 100 Mechanical Ventilator 06/19/16 05:20 30 Intake and Output 06/18/16 06/18/16 06/19/16 15:00 23:00 07:00 Intake Total 100 ml 2350 ml 1389.8 ml Output Total 400 ml 1450 ml Balance 100 ml 1950 ml -60.2 ml Exam Constitutional: alert, intubated, well developed Psych: nl mood/affect Head: normocephalic Eyes: EOMI, nl conjunctiva, nl lids ENMT: nl external ears & nose, nl lips & teeth, nl nasal mucosa & septum Respiratory: clear to auscultation, normal air movement Cardiovascular: regular rate and rhythm Gastrointestinal: soft, incisional tenderness Musculoskeletal: nl extremities to inspection Neurological: HR CONSULTANT II-XII intact Results Result Diagram: 06/19/16 0600 06/19/16 0600 Results 24 hrs Laboratory Tests Test 06/18/16 23:45 06/19/16 06:00 Blood Gas Specimen Source Blood arterial Arterial Blood Date Drawn 06/18/2016 11:40:03 PM Arterial Blood pH (Temp corrected) 7.268 *L Arterial Blood pCO2 (Temp correct) 35.9 Arterial Blood pO2 (Temp corrected) 217.5 H Arterial Blood HCO3 16.0 L Arterial Blood Base Excess -10.0 L Arterial Blood Oxygen Saturation 99.1 H Roel Test N/A Arterial Blood Gas Puncture Site Right Brachial Arterial Blood Carboxyhemoglobin 0.3 Arterial Blood Methemoglobin 0.7 Blood Gas A-a O2 Differential 243.0 H Oxyhemoglobin Percent 98.1 Total Hemoglobin 12.5 Blood Gas Temperature 37.0 Blood Gas Respiration Rate 14.0 Blood Gas Actual Respiration Rate 14 Blood Gas Modality VENT - AC FiO2 70.0 Blood Gas Tidal Volume 450.0 Blood Gas Low PEEP Setting 5.0 Blood Gas Critical Value Read Back MADELAINE CARDONA Blood Gas Notified Whom MA Blood Gas Notified Time 06/18/2016 11:56:36 PM White Blood Count 10.4 Red Blood Count 3.94 L Hemoglobin 10.5 L Hematocrit 31.7 L Mean Corpuscular Volume 80.5 L Mean Corpuscular Hemoglobin 26.6 L Mean Corpuscular Hemoglobin Concent 33.1 Red Cell Distribution Width 16.8 H Platelet Count 268 # Mean Platelet Volume 9.8 Neutrophils % 83.9 H Lymphocytes % 12.3 L Monocytes % 3.2 Eosinophils % 0.0 Basophils % 0.2 Nucleated Red Blood Cells % 0.0 Neutrophils # 8.7 H Lymphocytes # 1.3 Monocytes # 0.3 Eosinophils # 0.0 Basophils # 0.0 Nucleated Red Blood Cells # 0.0 Prothrombin Time 13.4 Prothrombin Time Ratio 1.0 INR International Normalized Ratio 1.02 Activated Partial Thromboplast Time 29.2 Sodium Level 138 Potassium Level 4.3 Chloride Level 111 H Carbon Dioxide Level 18 L Anion Gap 13 Blood Urea Nitrogen 6 L Creatinine 0.68 Glucose Level 138 # Calcium Level 8.0 L Total Bilirubin 0.4 Direct Bilirubin 0.00 Indirect Bilirubin 0.4 Aspartate Amino Transf (AST/SGOT) 86 H Alanine Aminotransferase (ALT/SGPT) 173 H Alkaline Phosphatase 74 Total Protein 6.5 # Albumin 3.0 L Globulin 3.50 H Albumin/Globulin Ratio 0.85 Medications Medications Current Medications Potassium Chloride/Dextrose/ Sod Cl 1,000 ml @ 125 mls/hr Q8H IV Last administered on 06/18/16 10:57; Admin Dose 125 MLS/HR; Start 06/16/16 at 02:30 Piperacillin Sod/ Tazobactam Sod (Zosyn 3.375gm/ 100 ml (Pmx)) 100 ml @ 200 mls /hr Q8H IVPB Last administered on 06/19/16 02:09; Admin Dose 200 MLS/HR; Start 06/16/16 at 02:30 Ondansetron HCl (Zofran Inj) 4 mg Q4H PRN IV nausea Last administered on 11:03; Admin Dose 4 MG; Start 06/16/16 at 02:30 Acetaminophen (Tylenol Tab) 650 mg Q4H PRN PO pain/fever Last administered on 15:49; Admin Dose 650 MG; Start 06/16/16 at 02:30 Hydralazine HCl (Apresoline) 25 mg Q6H PRN PO sbp>160; Start 06/16/16 at 02:30 Morphine Sulfate (morphine) 2 mg Q4H PRN IV PAIN Last administered on 06/17/16 15:38; Admin Dose 2 MG; Start 06/16/16 at 17:30 Ondansetron HCl (Zofran Inj) 4 mg Q6H PRN IV NAUSEA AND/OR VOMITING; Start 06/18 at 22:30 Hydromorphone HCl (Dilaudid) 1 mg Q3 PRN IV PAIN LEVEL 6-10 Last administered on 06/19/16 07:52; Admin Dose 1 MG; Start 06/18/16 at 22:30 Pantoprazole 40 mg 40 mg DAILY@06 IV Last administered on 06/19/16 05:47; Admin Dose 40 MG; Start 06/19/16 at 06:00 Sodium Chloride 1,000 ml @ 125 mls/hr Q8H IV Last administered on 06/19/16 06: 55; Admin Dose 125 MLS/HR; Start 06/18/16 at 22:23 Fentanyl 100 ml @ 2.5 mls/hr TITRATE IV Last administered on 06/18/16 23:35; Admin Dose 2.5 MLS/HR; Start 06/18/16 at 23:10 Propofol (Diprivan) 100 ml @ 1.95 mls/hr Q12H IV Last administered on 04:22; Admin Dose 15.6 MLS/HR; Start 06/18/16 at 23:10 RICARDO DIAZ June 19, 2016 08:42
--- NOTE | 2016-06-19 09:14 | PN ---
Date/Time of Note Date/Time of Note DATE: 06/19/16 TIME: 09:11 Assessment/Plan Lines/Catheters IV Catheter Type (from [facility]): Peripheral IV Dalton in Place (from [facility]): No Assessment/Plan Assessment/Plan 41F status post subtotal fenestrated cholecystectomy, lysis of adhesions, drain placement postop day #1 * White blood cell count normal. Total bilirubin normal. Transaminases improving. * Continue drains * Continue IV antibiotics * Extubation per pulmonary * Can DC NG tube once extubated Further recommendations will be made based on clinical course. Subjective 24 Hr Interval Summary Intubated but awake and responding to commands. Reports minimal abdominal pain. Ahmet drain output 50 cc serosanguineous. Malecot catheter without any drainage. Afebrile and hemodynamically stable. Exam/Review of Systems Vital Signs Vitals Vital Signs Date Time Temp Pulse Resp B/P Pulse Ox O2 Delivery O2 Flow Rate FiO2 06/19/16 07:30 98.8 56 14 113/80 100 Mechanical Ventilator 06/19/16 05:20 30 Intake and Output 06/18/16 06/18/16 06/19/16 15:00 23:00 07:00 Intake Total 100 ml 2350 ml 1389.8 ml Output Total 400 ml 1450 ml Balance 100 ml 1950 ml -60.2 ml Exam Free Text/Dictation GENERAL: Awake, alert and oriented x3. No acute distress SKIN: No jaundice HEENT: No scleral icterus. CHEST: Clear to auscultation bilaterally. HEART: Regular rate and rhythm. S1, S2. No murmurs appreciated. ABDOMEN: Soft, non-distended, bowel sounds present. Minimal incisional tenderness to palpation EXTREMITIES: Without clubbing, cyanosis, or edema. Results Result Diagram: 06/19/16 0600 06/19/16 0600 MARILEE HATFIELD MD June 19, 2016 09:14
--- NOTE | 2016-06-19 09:16 | GILP ---
DATE OF PROCEDURE: 06/17/2016 NAME OF PROCEDURE: Endoscopic retrograde cholangiopancreatography with endoscopic retrograde sphinc terotomy and stone removal. SURGEON: Prabhu Nielsen MD. PREOPERATIVE DIAGNOSIS: POSTOPERATIVE DIAGNOSIS: HISTORY AND INDICATIONS: PREMEDICATION: General anesthesia by anesthesiologist. INSTRUMENT USED: Olympus side viewing panendoscope. TECHNIQUE: After informed consent, with the patient/relatives understanding the procedure, its indic ations, potential risks and complications, including but not limited to: allergic reaction, bleeding , perforation or infection, and after all pertinent questions were answered to the patients satisfac tion, the patient/relatives signed witnessed informed consent. Following this, premedication was administered slowly IV push under careful cardiovascular and respi ratory monitoring with pulse oximetry, automatic blood pressure and party plan salesperson. Once the sedative effect was achieved the patient was place in the prone position in the radiology s pecial procedures suite; the side viewing panendoscope was introduced and advanced under visual cont rol. Careful examination of the upper gastrointestinal tract, both on insertion as well as withdrawal of the instrument disclosed the following findings: ESOPHAGUS: The mucosa of the entire esophagus appears within normal limits. There is no evidence of esophagitis, varices, neoplasm or stricture. No Hiatal Hernia identified. STOMACH: Upon entrance to the stomach air was insufflated, the gastric carmen distended normally. The mucosa of the fundus, body and antrum of the stomach was carefully examined both head-on and on ret roflexion, and shows no abnormalities. There is no evidence of gastritis, ulcers or neoplasm. PYLORUS: The pylorus appears patent and within normal limits, with no evidence of gastric outlet obs truction. DUODENUM: The duodenal mucosa was carefully examined in the duodenal bulb as well as the second port ion of the duodenum and appears unremarkable with no evidence of duodenitis, ulcer or neoplasm. AMPULLA OF VATER: The ampulla was identified, cannulated without difficulty. The common bile duct a ppears dilated and there are 3 small filling defects in distal common bile duct. A sphincterotomy w as performed without difficulty and a 9 to 12 mm balloon was used to sweep the biliary tree and lopez ve 3 stones without difficulty. No additional abnormalities are noted on occlusion cholangiogram an d emptying is adequate. IMPRESSION 1. Dilated common bile duct with 3 small stones in the distal common bile duct. 2. Post-endoscopic retrograde sphincterotomy. 3. Post-stone removal. PLAN: The patient will be observed. Laparoscopic cholecystectomy as soon as possible is recommende d to avoid possible recurrence of choledocholithiasis. Dictated By: PRABHU NIELSEN MS/SHANELL Conf#: [id number] DID#: [id number] CC: Prabhu Nielsen;*EndCC*
--- NOTE | 2016-06-19 10:20 | PN ---
Date/Time of Note Date/Time of Note DATE: 06/19/16 TIME: 10:11 Assessment/Plan VTE Prophylaxis VTE Prophylaxis Intervention: SCD's Lines/Catheters IV Catheter Type (from Nrs): Peripheral IV Urinary Cath still in place: Yes Reason Cath still needed: urinary retention, other (indicate) (Post op ) Assessment/Plan Assessment/Plan 1Symptomatic gallstones with acute choledocholithiasis - s/p subtotal fenestrated cholecystectomy, lysis of adhesions, drain placement 06/18/2016 postop day #1- pt remains intubated on ventilator, currenty on CPAP trial 2.MRCP showed acute choledocholithiasis s/p ERCP with removal of stones on 2016 3. acute transaminitis improving 4. acute intractable abdominal pain Plan: IV abx zosyn, decrease IVF D51/2 NS to 100 cc/hour S/p ERCP with removal of CBD stones- now s/p surgery, pt remains intubated on ventilator, currently awake, alert, on CPAP trial Pulmonary to decide about extubation SCD for DVT prophylaxis Subjective 24 Hr Interval Summary Free Text/Dictation s/p surgery ,tranferred to ICU, subtotal fenestrated cholecystectomy, lysis of adhesions, drain placement 06/18/2016 postop day #1- pt remains intubated on ventilator, currenty on CPAP trial Exam/Review of Systems Vital Signs Vitals Vital Signs Date Time Temp Pulse Resp B/P Pulse Ox O2 Delivery O2 Flow Rate FiO2 06/19/16 08:00 64 06/19/16 07:30 98.8 14 113/80 100 Mechanical Ventilator 06/19/16 05:20 30 Intake and Output 06/18/16 06/18/16 06/19/16 15:00 23:00 07:00 Intake Total 100 ml 2350 ml 1389.8 ml Output Total 400 ml 1450 ml Balance 100 ml 1950 ml -60.2 ml Exam pt remains intubated post operative, s/p surgery GENERAL: Awake, alert , intubated on CPAP trial SKIN: No jaundice HEENT: No scleral icterus. CHEST: Clear to auscultation bilaterally. HEART: Regular rate and rhythm. S1, S2. No murmurs appreciated. ABDOMEN: Soft, non-distended, bowel sounds present. Minimal incisional tenderness to palpation, drain in place EXTREMITIES: Without clubbing, cyanosis, or edema. Results Result Diagram: 06/19/16 0600 06/19/16 0600 Results 24 hrs Laboratory Tests Test 06/18/16 23:45 06/19/16 06:00 Blood Gas Specimen Source Blood arterial Arterial Blood Date Drawn 06/18/2016 11:40:03 PM Arterial Blood pH (Temp corrected) 7.268 *L Arterial Blood pCO2 (Temp correct) 35.9 Arterial Blood pO2 (Temp corrected) 217.5 H Arterial Blood HCO3 16.0 L Arterial Blood Base Excess -10.0 L Arterial Blood Oxygen Saturation 99.1 H Roel Test N/A Arterial Blood Gas Puncture Site Right Brachial Arterial Blood Carboxyhemoglobin 0.3 Arterial Blood Methemoglobin 0.7 Blood Gas A-a O2 Differential 243.0 H Oxyhemoglobin Percent 98.1 Total Hemoglobin 12.5 Blood Gas Temperature 37.0 Blood Gas Respiration Rate 14.0 Blood Gas Actual Respiration Rate 14 Blood Gas Modality VENT - AC FiO2 70.0 Blood Gas Tidal Volume 450.0 Blood Gas Low PEEP Setting 5.0 Blood Gas Critical Value Read Back MADELAINE CARDONA Blood Gas Notified Whom MA Blood Gas Notified Time 06/18/2016 11:56:36 PM White Blood Count 10.4 Red Blood Count 3.94 L Hemoglobin 10.5 L Hematocrit 31.7 L Mean Corpuscular Volume 80.5 L Mean Corpuscular Hemoglobin 26.6 L Mean Corpuscular Hemoglobin Concent 33.1 Red Cell Distribution Width 16.8 H Platelet Count 268 # Mean Platelet Volume 9.8 Neutrophils % 83.9 H Lymphocytes % 12.3 L Monocytes % 3.2 Eosinophils % 0.0 Basophils % 0.2 Nucleated Red Blood Cells % 0.0 Neutrophils # 8.7 H Lymphocytes # 1.3 Monocytes # 0.3 Eosinophils # 0.0 Basophils # 0.0 Nucleated Red Blood Cells # 0.0 Prothrombin Time 13.4 Prothrombin Time Ratio 1.0 INR International Normalized Ratio 1.02 Activated Partial Thromboplast Time 29.2 Sodium Level 138 Potassium Level 4.3 Chloride Level 111 H Carbon Dioxide Level 18 L Anion Gap 13 Blood Urea Nitrogen 6 L Creatinine 0.68 Glucose Level 138 # Calcium Level 8.0 L Total Bilirubin 0.4 Direct Bilirubin 0.00 Indirect Bilirubin 0.4 Aspartate Amino Transf (AST/SGOT) 86 H Alanine Aminotransferase (ALT/SGPT) 173 H Alkaline Phosphatase 74 Total Protein 6.5 # Albumin 3.0 L Globulin 3.50 H Albumin/Globulin Ratio 0.85 Medications Medications Current Medications Piperacillin Sod/ Tazobactam Sod (Zosyn 3.375gm/ 100 ml (Pmx)) 100 ml @ 200 mls /hr Q8H IVPB Last administered on 06/19/16 02:09; Admin Dose 200 MLS/HR; Start 06/16/16 at 02:30 Ondansetron HCl (Zofran Inj) 4 mg Q4H PRN IV nausea Last administered on 11:03; Admin Dose 4 MG; Start 06/16/16 at 02:30 Acetaminophen (Tylenol Tab) 650 mg Q4H PRN PO pain/fever Last administered on 15:49; Admin Dose 650 MG; Start 06/16/16 at 02:30 Hydralazine HCl (Apresoline) 25 mg Q6H PRN PO sbp>160; Start 06/16/16 at 02:30 Morphine Sulfate (morphine) 2 mg Q4H PRN IV PAIN Last administered on 06/17/16 15:38; Admin Dose 2 MG; Start 06/16/16 at 17:30 Ondansetron HCl (Zofran Inj) 4 mg Q6H PRN IV NAUSEA AND/OR VOMITING; Start 06/18 at 22:30 Hydromorphone HCl (Dilaudid) 1 mg Q3 PRN IV PAIN LEVEL 6-10 Last administered on 06/19/16 07:52; Admin Dose 1 MG; Start 06/18/16 at 22:30 Pantoprazole 40 mg 40 mg DAILY@06 IV Last administered on 06/19/16 05:47; Admin Dose 40 MG; Start 06/19/16 at 06:00 Fentanyl 100 ml @ 2.5 mls/hr TITRATE IV Last administered on 06/18/16 23:35; Admin Dose 2.5 MLS/HR; Start 06/18/16 at 23:10 Propofol 100 ml @ 1.95 mls/hr Q12H IV Last administered on 06/19/16 04:22; Admin Dose 15.6 MLS/HR; Start 06/18/16 at 23:10 Dextrose/Sodium Chloride (D5-1/2ns) 1,000 ml @ 125 mls/hr Q8H IV ; Start at 09:30 MARIA DEL ROSARIO FLORES MD June 19, 2016 10:20
[2016-06-19] MEDS: DEXTROSE 5%-0.45% NACL 1,000 ML IV SCH ×3 (10:38→17:47)
--- NOTE | 2016-06-19 10:48 | CONS ---
DATE OF ADMISSION: 06/16/2016 DATE OF CONSULTATION: 06/19/2016 REASON FOR CONSULTATION: Ventilator management. Thank you, Dr. Feliz, for this consultation. HISTORY OF PRESENT ILLNESS: This is a pleasant 41-year-old lady presented to the hospital on 2016, with 1-week history of abdominal pain localized to the right upper quadrant with some associat ed nausea but no vomiting, no diarrhea, no fever or chills. Ultrasound was performed demonstrated g allstones and the patient underwent laparoscopic and then converted to open cholecystectomy. The renee geronimo tolerated the procedure well; however, remained on mechanical ventilation overnight. This mor phong she is awake, alert, and oriented, comfortable at rest with no evidence of respiratory distress , following simple commands on mechanical ventilation. PAST MEDICAL HISTORY: None. ALLERGIES: NONE. SOCIAL HISTORY: Nonsmoker, no alcohol, no history of drug use. FAMILY HISTORY: Noncontributory. SYSTEMS REVIEW: A 12-point review of systems was negative other than that mentioned above. PHYSICAL EXAMINATION: GENERAL: Well-nourished, well-developed lady, comfortable at rest, no acute distress. VITAL SIGNS: Currently afebrile, pulse is 60, blood pressure 113/80, O2 saturation 96%, FIO2 of 40% . NECK: Supple. No JVD or lymphadenopathy. CARDIAC: S1, S2, no added sounds or murmurs. CHEST: Diminished air entry bilaterally. ABDOMEN: Soft, nontender. No guarding or rebound. EXTREMITIES: No cyanosis, clubbing, edema. NEUROLOGIC: Grossly intact. No focal deficits. DIAGNOSTIC DATA: Chest x-ray showed low lung volumes, but no infiltrates or effusions. LABORATORY DATA: White count 10, hemoglobin 10.5, platelets of 268. BUN 6, creatinine 0.68. Initi al ABG last night, pH 7.26, pCO2 of 35, pO2 of 217. INR 1.02. IMPRESSION AND PLAN: 1. Status post ERCP with removal of stones and sphincterotomy. 2. Status post open laparoscopic cholecystectomy. 3. The patient maintained on mechanical ventilation postoperatively secondary to over paralysis. PLAN: 1. CPAP weaning trial this morning with hopefully safe extubation. 2. Incentive spirometry. 3. Continue surgery recommendations. 4. DVT and GI prophylaxis. 5. From pulmonary standpoint, the patient can likely be transferred to med/surg floor later this af ternoon. Dictated By: ADELITA CASTRO/SHANELL Conf#: [id number] DID#: [id number]
[2016-06-19 11:23] LABS: AADO2 Arterial 49.7 mmHg (7.0-24.0); Allen Test ACCEPTAB; Arterial Base Excess -7.1 mmol/L (-3.0-3); Arterial COHb 0.3 % (0.0-3.0); Arterial Fraction of Oxyhgb 97.3 % (93.0-99.0); Arterial HCO3 17.3 mmol/L (22.0-26.0); Arterial MetHb 0.5 % (0.0-1.5); Arterial Total Hemglobin 12.1 g/dl (12.0-18.0); Blood Gas PS 10; MODE VENT - CPAP
[2016-06-19] MEDS: morphine 2 MG INJ IV PRN (17:38)
[2016-06-20] VITALS (29 sets, daily range): BP systolic 110–142; BP diastolic 76–104; PULSE 101–150; RESP 10–27
[2016-06-20] MEDS: DEXTROSE 5%-0.45% NACL 1,000 ML IV SCH ×2 (02:11→09:34)
[2016-06-20] MEDS: morphine 2 MG INJ IV PRN ×2 (02:21→07:24)
[2016-06-20] MEDS: PIPER-TAZO 3.375 GM IV (PMX) 100 ML IVPB SCH ×3 (02:25→20:48)
[2016-06-20 05:05] LABS: ADD SCAN DIFF NO
[2016-06-20 05:10] LABS: BASOPHILS % 0.3 % (0.0-2.0); EOSINOPHILS # 0.1 10^3/ul (0.0-0.5); EOSINOPHILS % 1.1 % (0.0-7.0); HEMATOCRIT 32.8 % (37.0-47.0); HEMOGLOBIN 10.6 g/dl (12.0-16.0); LYMPHOCYTES # 2.3 10^3/ul (0.8-2.9); LYMPHOCYTES % 19.8 % (15.0-51.0); MEAN CORPUSCULAR HEMOGLOBIN 25.7 pg (29.0-33.0); MEAN CORPUSCULAR HGB CONC 32.3 g/dl (32.0-37.0); MEAN CORPUSCULAR VOLUME 79.6 fl (82.0-101.0); MEAN PLATELET VOLUME 9.8 fl (7.4-10.4); MONOCYTE # 0.9 10^3/ul (0.3-0.9); MONOCYTES % 7.2 % (0.0-11.0); NEUTROPHIL # 8.5 10^3/ul (1.6-7.5); NEUTROPHILS % 71.3 % (39.0-77.0); PLATELET COUNT 285 10^3/UL (140-415); RED BLOOD COUNT 4.12 10^6/ul (4.20-5.40); RED CELL DISTRIBUTION WIDTH 16.9 % (11.5-14.5); WHITE BLOOD COUNT 11.8 10^3/ul (4.8-10.8)
[2016-06-20 05:32] LABS: ALBUMIN 2.9 g/dl (3.3-4.9); ALBUMIN/GLOBULIN RATIO 0.8; BILIRUBIN,INDIRECT 0.5 mg/dl (0-1.1); BILIRUBIN,TOTAL 0.5 mg/dl (0.2-1.3); CALCIUM 7.7 mg/dl (8.4-10.2); CREATININE 0.67 mg/dl (0.44-1.00); POTASSIUM 3.3 mmol/L (3.5-5.1); TOTAL PROTEIN 6.5 g/dl (6.1-8.1)
[2016-06-20 05:33] LABS: INR 0.99; PROTIME 13.1 Sec (12.2-14.2)
[2016-06-20 05:34] LABS: PARTIAL THROMBOPLASTIN TIME 26.8 Sec (25.0-35.0)
[2016-06-20] MEDS: PANTOPRAZOLE 40 MG INJ IV SCH (07:14)
--- NOTE | 2016-06-20 07:26 | CONS ---
Date/Time of Note Date/Time of Note DATE: 06/20/16 TIME: 07:20 Assessment/Plan Assessment/Plan Additional Assessment/Plan Abdominal pain/transaminitis Status post cholecystectomy Status post lysis of abdominal adhesions Status post ERCP/ERS/stone removal 06/17/2016 Hx of multiple SUPER[employer]OR ADVICE shunts Plan Monitor liver function tests Adequate pain control and hydration Further recommendations pending clinical course Patient seen in collaboration with Dr. Nielsen Consultation Date/Type/Reason Admit Date/Time June 16, 2016 at 01:42 Initial Consult Date 06/16/16 Type of Consultation: Gastroenterology Referring Provider: MARIA DEL ROSARIO FLORES MD 24 HR Interval Summary Free Text/Dictation Successfully extubated Reports increased right side abdominal pain Denies nausea and vomiting Exam/Review of Systems Vital Signs Vitals Vital Signs Date Time Temp Pulse Resp B/P Pulse Ox O2 Delivery O2 Flow Rate FiO2 06/20/16 07:00 116 26 131/93 96 06/20/16 05:31 2.0 06/20/16 04:00 98.0 Room Air 06/19/16 09:08 30 Intake and Output 06/19/16 06/19/16 06/20/16 15:00 23:00 07:00 Intake Total 1155.3 ml 981.25 ml 575 ml Output Total 650 ml 790 ml 896 ml Balance 505.3 ml 191.25 ml -321 ml Exam Constitutional: alert, well developed Psych: nl mood/affect Head: normocephalic Eyes: EOMI, nl conjunctiva, nl lids ENMT: nl external ears & nose, nl lips & teeth, nl nasal mucosa & septum Respiratory: clear to auscultation, normal air movement Cardiovascular: regular rate and rhythm Gastrointestinal: soft, incisional tenderness Musculoskeletal: nl extremities to inspection Neurological: PHYSICIAN CODING SPECIALIST II-XII intact Results Result Diagram: 06/20/16 0436 06/20/16 0436 Results 24 hrs Laboratory Tests Test 06/19/16 11:10 06/20/16 04:36 Blood Gas Specimen Source Blood arterial Arterial Blood Date Drawn 06/19/2016 11:15:07 AM Arterial Blood pH (Temp corrected) 7.356 Arterial Blood pCO2 (Temp correct) 31.7 L Arterial Blood pO2 (Temp corrected) 127.0 H Arterial Blood HCO3 17.3 L Arterial Blood Base Excess -7.1 L Arterial Blood Oxygen Saturation 98.1 H Roel Test ACCEPTAB Arterial Blood Gas Puncture Site Right Radial Arterial Blood Carboxyhemoglobin 0.3 Arterial Blood Methemoglobin 0.5 Blood Gas A-a O2 Differential 49.7 H Oxyhemoglobin Percent 97.3 Total Hemoglobin 12.1 Blood Gas Temperature 37.0 Blood Gas Actual Respiration Rate 21 Blood Gas Modality VENT - CPAP FiO2 30.0 Blood Gas Low PEEP Setting 5.0 Blood Gas Pressure Support 10 Blood Gas Notified Whom NUBIA ZAMORA Blood Gas Notified Time 06/19/2016 11:23:04 AM White Blood Count 11.8 H Red Blood Count 4.12 L Hemoglobin 10.6 L Hematocrit 32.8 L Mean Corpuscular Volume 79.6 L Mean Corpuscular Hemoglobin 25.7 L Mean Corpuscular Hemoglobin Concent 32.3 Red Cell Distribution Width 16.9 H Platelet Count 285 Mean Platelet Volume 9.8 Neutrophils % 71.3 Lymphocytes % 19.8 Monocytes % 7.2 Eosinophils % 1.1 Basophils % 0.3 Nucleated Red Blood Cells % 0.0 Neutrophils # 8.5 H Lymphocytes # 2.3 Monocytes # 0.9 Eosinophils # 0.1 Basophils # 0.0 Nucleated Red Blood Cells # 0.0 Prothrombin Time 13.1 Prothrombin Time Ratio 1.0 INR International Normalized Ratio 0.99 Activated Partial Thromboplast Time 26.8 Sodium Level 138 Potassium Level 3.3 L Chloride Level 110 Carbon Dioxide Level 24 Anion Gap 7 L Blood Urea Nitrogen 3 L Creatinine 0.67 Glucose Level 169 Calcium Level 7.7 L Total Bilirubin 0.5 Direct Bilirubin 0.00 Indirect Bilirubin 0.5 Aspartate Amino Transf (AST/SGOT) 43 Alanine Aminotransferase (ALT/SGPT) 121 H Alkaline Phosphatase 64 Total Protein 6.5 Albumin 2.9 L Globulin 3.60 H Albumin/Globulin Ratio 0.80 Medications Medications Current Medications Piperacillin Sod/ Tazobactam Sod (Zosyn 3.375gm/ 100 ml (Pmx)) 100 ml @ 200 mls /hr Q8H IVPB Last administered on 06/20/16 02:25; Admin Dose 200 MLS/HR; Start 06/16/16 at 02:30 Ondansetron HCl (Zofran Inj) 4 mg Q4H PRN IV nausea Last administered on 11:03; Admin Dose 4 MG; Start 06/16/16 at 02:30 Acetaminophen (Tylenol Tab) 650 mg Q4H PRN PO pain/fever Last administered on 15:49; Admin Dose 650 MG; Start 06/16/16 at 02:30 Hydralazine HCl (Apresoline) 25 mg Q6H PRN PO sbp>160; Start 06/16/16 at 02:30 Morphine Sulfate (morphine) 2 mg Q4H PRN IV PAIN Last administered on 06/20/16 02:21; Admin Dose 2 MG; Start 06/16/16 at 17:30 Ondansetron HCl (Zofran Inj) 4 mg Q6H PRN IV NAUSEA AND/OR VOMITING; Start 06/18 at 22:30 Hydromorphone HCl (Dilaudid) 1 mg Q3 PRN IV PAIN LEVEL 6-10 Last administered on 06/19/16 21:33; Admin Dose 1 MG; Start 06/18/16 at 22:30 Pantoprazole 40 mg 40 mg DAILY@06 IV Last administered on 06/20/16 07:14; Admin Dose 40 MG; Start 06/19/16 at 06:00 Dextrose/Sodium Chloride (D5-1/2ns) 1,000 ml @ 125 mls/hr Q8H IV Last administered on 06/20/16 02:11; Admin Dose 125 MLS/HR; Start 06/19/16 at 09:30 RICARDO DIAZ June 20, 2016 07:26
--- NOTE | 2016-06-20 09:17 | CONS ---
Date/Time of Note Date/Time of Note DATE: 06/20/16 TIME: 09:12 Consult Date/Type/Reason Admit Date/Time June 16, 2016 at 01:42 Initial Consult Date 06/16/16 Type of Consultation: Gastroenterology Ordering Provider: MARIA DEL ROSARIO FLORES MD Objective Vital Signs Date Time Temp Pulse Resp B/P Pulse Ox O2 Delivery O2 Flow Rate FiO2 06/20/16 08:00 117 06/20/16 08:00 99.3 21 123/87 96 Room Air 06/20/16 05:31 2.0 06/19/16 09:08 30 Intake and Output 06/19/16 06/19/16 06/20/16 15:00 23:00 07:00 Intake Total 1155.3 ml 981.25 ml 700 ml Output Total 650 ml 790 ml 1396 ml Balance 505.3 ml 191.25 ml -696 ml Exam PHYSICAL EXAMINATION: GENERAL: Well-nourished, well-developed lady, comfortable at rest, no acute distress. VITAL SIGNS: As above. NECK: Supple. No JVD or lymphadenopathy. CARDIAC: S1, S2, no added sounds or murmurs. CHEST: Diminished air entry bilaterally. ABDOMEN: Soft, nontender. No guarding or rebound. EXTREMITIES: No cyanosis, clubbing, edema. NEUROLOGIC: Grossly intact. No focal deficits. Results/Medications Result Diagram: 06/20/16 0436 06/20/16 0436 Results 24 hrs Laboratory Tests Test 06/19/16 11:10 06/20/16 04:36 Blood Gas Specimen Source Blood arterial Arterial Blood Date Drawn 06/19/2016 11:15:07 AM Arterial Blood pH (Temp corrected) 7.356 Arterial Blood pCO2 (Temp correct) 31.7 L Arterial Blood pO2 (Temp corrected) 127.0 H Arterial Blood HCO3 17.3 L Arterial Blood Base Excess -7.1 L Arterial Blood Oxygen Saturation 98.1 H Roel Test ACCEPTAB Arterial Blood Gas Puncture Site Right Radial Arterial Blood Carboxyhemoglobin 0.3 Arterial Blood Methemoglobin 0.5 Blood Gas A-a O2 Differential 49.7 H Oxyhemoglobin Percent 97.3 Total Hemoglobin 12.1 Blood Gas Temperature 37.0 Blood Gas Actual Respiration Rate 21 Blood Gas Modality VENT - CPAP FiO2 30.0 Blood Gas Low PEEP Setting 5.0 Blood Gas Pressure Support 10 Blood Gas Notified Whom NUBIA ZAMORA Blood Gas Notified Time 06/19/2016 11:23:04 AM White Blood Count 11.8 H Red Blood Count 4.12 L Hemoglobin 10.6 L Hematocrit 32.8 L Mean Corpuscular Volume 79.6 L Mean Corpuscular Hemoglobin 25.7 L Mean Corpuscular Hemoglobin Concent 32.3 Red Cell Distribution Width 16.9 H Platelet Count 285 Mean Platelet Volume 9.8 Neutrophils % 71.3 Lymphocytes % 19.8 Monocytes % 7.2 Eosinophils % 1.1 Basophils % 0.3 Nucleated Red Blood Cells % 0.0 Neutrophils # 8.5 H Lymphocytes # 2.3 Monocytes # 0.9 Eosinophils # 0.1 Basophils # 0.0 Nucleated Red Blood Cells # 0.0 Prothrombin Time 13.1 Prothrombin Time Ratio 1.0 INR International Normalized Ratio 0.99 Activated Partial Thromboplast Time 26.8 Sodium Level 138 Potassium Level 3.3 L Chloride Level 110 Carbon Dioxide Level 24 Anion Gap 7 L Blood Urea Nitrogen 3 L Creatinine 0.67 Glucose Level 169 Calcium Level 7.7 L Total Bilirubin 0.5 Direct Bilirubin 0.00 Indirect Bilirubin 0.5 Aspartate Amino Transf (AST/SGOT) 43 Alanine Aminotransferase (ALT/SGPT) 121 H Alkaline Phosphatase 64 Total Protein 6.5 Albumin 2.9 L Globulin 3.60 H Albumin/Globulin Ratio 0.80 Medications Current Medications Piperacillin Sod/ Tazobactam Sod (Zosyn 3.375gm/ 100 ml (Pmx)) 100 ml @ 200 mls /hr Q8H IVPB Last administered on 06/20/16 02:25; Admin Dose 200 MLS/HR; Start 06/16/16 at 02:30 Ondansetron HCl (Zofran Inj) 4 mg Q4H PRN IV nausea Last administered on 11:03; Admin Dose 4 MG; Start 06/16/16 at 02:30 Acetaminophen (Tylenol Tab) 650 mg Q4H PRN PO pain/fever Last administered on 15:49; Admin Dose 650 MG; Start 06/16/16 at 02:30 Hydralazine HCl (Apresoline) 25 mg Q6H PRN PO sbp>160; Start 06/16/16 at 02:30 Morphine Sulfate (morphine) 2 mg Q4H PRN IV PAIN Last administered on 06/20/16 07:24; Admin Dose 2 MG; Start 06/16/16 at 17:30 Ondansetron HCl (Zofran Inj) 4 mg Q6H PRN IV NAUSEA AND/OR VOMITING; Start 06/18 at 22:30 Hydromorphone HCl (Dilaudid) 1 mg Q3 PRN IV PAIN LEVEL 6-10 Last administered on 06/19/16 21:33; Admin Dose 1 MG; Start 06/18/16 at 22:30 Pantoprazole 40 mg 40 mg DAILY@06 IV Last administered on 06/20/16 07:14; Admin Dose 40 MG; Start 06/19/16 at 06:00 Dextrose/Sodium Chloride (D5-1/2ns) 1,000 ml @ 125 mls/hr Q8H IV Last administered on 06/20/16 02:11; Admin Dose 125 MLS/HR; Start 06/19/16 at 09:30 Assessment/Plan Chief Complaint/Hosp Course IMPRESSION AND PLAN: 1. Status post ERCP with removal of stones and sphincterotomy. 2. Status post open laparoscopic cholecystectomy. 3. Extubated yesterday doing well from pulmonary standpoint 4. Sinus tachycardia. ? 2ndry to pain. Doubt PE. PLAN: 1. Continue IS 2. I encourage out of bed 3. Continue surgery recommendations. 4. DVT and GI prophylaxis. 5. Transfer to [facility], consider cards consult. 6. Replace K+ Problems: ADELITA RUBIO MD, [facility] June 20, 2016 09:17
[2016-06-20] MEDS ORDERED: POTASSIUM CHLORIDE 250 ML IVPB ONE (09:30)
--- NOTE | 2016-06-20 09:56 | PN ---
Date/Time of Note Date/Time of Note DATE: 06/20/16 TIME: 09:52 Assessment/Plan Lines/Catheters IV Catheter Type (from Nrs): Peripheral IV Mckeon in Place (from Nrs): Yes Assessment/Plan Assessment/Plan 41F status post subtotal fenestrated cholecystectomy, lysis of adhesions, drain placement postop day #2 * Advance to clear liquids * Continue drains * Continue IV antibiotics * LFTs normal * D/C mckeon * DVT prophylaxis. OK for Lovenox * Encourage IS/OOB * Physical Therapy * OK to transfer to [facility] from surgical standpoint Further recommendations will be made based on clinical course. Subjective 24 Hr Interval Summary Extubated and doing well. Complains of some mild incisional pain. Tolerating ice chips. Afebrile. Ahmet drain 78cc serous. Malecot catheter without drainage. Exam/Review of Systems Vital Signs Vitals Vital Signs Date Time Temp Pulse Resp B/P Pulse Ox O2 Delivery O2 Flow Rate FiO2 06/20/16 08:00 117 06/20/16 08:00 99.3 21 123/87 96 Room Air 06/20/16 05:31 2.0 06/19/16 09:08 30 Intake and Output 06/19/16 06/19/16 06/20/16 15:00 23:00 07:00 Intake Total 1155.3 ml 981.25 ml 700 ml Output Total 650 ml 790 ml 1396 ml Balance 505.3 ml 191.25 ml -696 ml Exam Free Text/Dictation GENERAL: Awake, alert and oriented x3. No acute distress SKIN: No jaundice HEENT: No scleral icterus. CHEST: Decreased breath sounds bilateral bases HEART: Regular rate and rhythm. S1, S2. No murmurs appreciated. ABDOMEN: Soft, non-distended, bowel sounds present. Minimal incisional tenderness to palpation INCISIONS: clean, dry, intact EXTREMITIES: Without clubbing, cyanosis, or edema. Results Result Diagram: 06/20/16 0436 06/20/16 0436 MARILEE HATFIELD MD June 20, 2016 09:56
--- NOTE | 2016-06-20 10:16 | RADRPT ---
PROCEDURE: Chest 1 views. CLINICAL INDICATION: Shortness of breath. TECHNIQUE: AP views of the chest was obtained. COMPARISON: June 18, 2016 FINDINGS: The heart is large. Endotracheal and nasogastric tubes have been removed. Ventriculoperitoneal shun t tubing continues to be identified over the right chest. Atelectasis versus mild infiltrates in the retrocardiac left lower lobe are unchanged. Osseous structures are intact. IMPRESSION: Cardiomegaly . Interval extubation and nasogastric tube removal. Stable patchy atelectasis versus mild infiltrates in the retrocardiac left lower lobe. RPTAT: AA .Rodrigo Boone MD, MD Date Time Electronically viewed and signed by .Rodrigo Boone MD, on 06/20/2016 10:15 .P/
[2016-06-20] MEDS: ENOXAPARIN 40 MG/0.4 ML SYG SC SCH (10:53)
--- NOTE | 2016-06-20 11:37 | PN ---
Date/Time of Note Date/Time of Note DATE: 06/20/16 TIME: 11:33 Assessment/Plan VTE Prophylaxis VTE Prophylaxis Intervention: LMWH Lines/Catheters IV Catheter Type (from Nrs): Peripheral IV Urinary Cath still in place: No Assessment/Plan Assessment/Plan 41 yo s/p open danielle s/p ERCP and removal of stone s/p extubation transfer to [facility] jorge PT surg,GI, and pulm follow up. Subjective 24 Hr Interval Summary Constitutional: no complaints Exam/Review of Systems Vital Signs Vitals Vital Signs Date Time Temp Pulse Resp B/P Pulse Ox O2 Delivery O2 Flow Rate FiO2 06/20/16 11:00 129 22 142/104 100 Room Air 06/20/16 08:00 99.3 06/20/16 05:31 2.0 06/19/16 09:08 30 Intake and Output 06/19/16 06/19/16 06/20/16 15:00 23:00 07:00 Intake Total 1155.3 ml 981.25 ml 700 ml Output Total 650 ml 790 ml 1396 ml Balance 505.3 ml 191.25 ml -696 ml Exam Constitutional: alert, oriented Neck: non-tender, supple Respiratory: clear to auscultation Cardiovascular: nl pulses Gastrointestinal: bowel sounds, soft, tender Extremities: normal pulses Results Result Diagram: 06/20/16 0436 06/20/16 0436 Results 24 hrs Laboratory Tests Test 06/20/16 04:36 White Blood Count 11.8 H Red Blood Count 4.12 L Hemoglobin 10.6 L Hematocrit 32.8 L Mean Corpuscular Volume 79.6 L Mean Corpuscular Hemoglobin 25.7 L Mean Corpuscular Hemoglobin Concent 32.3 Red Cell Distribution Width 16.9 H Platelet Count 285 Mean Platelet Volume 9.8 Neutrophils % 71.3 Lymphocytes % 19.8 Monocytes % 7.2 Eosinophils % 1.1 Basophils % 0.3 Nucleated Red Blood Cells % 0.0 Neutrophils # 8.5 H Lymphocytes # 2.3 Monocytes # 0.9 Eosinophils # 0.1 Basophils # 0.0 Nucleated Red Blood Cells # 0.0 Prothrombin Time 13.1 Prothrombin Time Ratio 1.0 INR International Normalized Ratio 0.99 Activated Partial Thromboplast Time 26.8 Sodium Level 138 Potassium Level 3.3 L Chloride Level 110 Carbon Dioxide Level 24 Anion Gap 7 L Blood Urea Nitrogen 3 L Creatinine 0.67 Glucose Level 169 Calcium Level 7.7 L Total Bilirubin 0.5 Direct Bilirubin 0.00 Indirect Bilirubin 0.5 Aspartate Amino Transf (AST/SGOT) 43 Alanine Aminotransferase (ALT/SGPT) 121 H Alkaline Phosphatase 64 Total Protein 6.5 Albumin 2.9 L Globulin 3.60 H Albumin/Globulin Ratio 0.80 Medications Medications Current Medications Piperacillin Sod/ Tazobactam Sod (Zosyn 3.375gm/ 100 ml (Pmx)) 100 ml @ 200 mls /hr Q8H IVPB Last administered on 06/20/16 10:46; Admin Dose 200 MLS/HR; Start 06/16/16 at 02:30 Acetaminophen (Tylenol Tab) 650 mg Q4H PRN PO pain/fever Last administered on 15:49; Admin Dose 650 MG; Start 06/16/16 at 02:30 Hydralazine HCl (Apresoline) 25 mg Q6H PRN PO sbp>160; Start 06/16/16 at 02:30 Morphine Sulfate (morphine) 2 mg Q4H PRN IV PAIN Last administered on 06/20/16 07:24; Admin Dose 2 MG; Start 06/16/16 at 17:30 Ondansetron HCl (Zofran Inj) 4 mg Q6H PRN IV NAUSEA AND/OR VOMITING; Start 06/18 at 22:30 Hydromorphone HCl (Dilaudid) 1 mg Q3 PRN IV PAIN LEVEL 6-10 Last administered on 06/19/16 21:33; Admin Dose 1 MG; Start 06/18/16 at 22:30 Pantoprazole 40 mg 40 mg DAILY@06 IV Last administered on 06/20/16 07:14; Admin Dose 40 MG; Start 06/19/16 at 06:00 Dextrose/Sodium Chloride 1,000 ml @ 125 mls/hr Q8H IV Last administered on 06/20 09:34; Admin Dose 125 MLS/HR; Start 06/19/16 at 09:30 Potassium Chloride (KCl 40 MEQ/250 ML NS) 250 ml @ 62.5 mls/hr ONCE ONCE IVPB Last administered on 06/20/16 10:53; Admin Dose 62.5 MLS/HR; Start 06/20/16 at 09:30; Stop 06/20/16 at 13:29 Enoxaparin Sodium (Lovenox) 40 mg DAILY SC Last administered on 06/20/16t 10:53 ; Admin Dose 40 MG; Start 06/20/16 at 10:00 GO GIL MD June 20, 2016 11:37
[2016-06-20] MEDS: ONDANSETRON 4 MG INJ IV PRN (22:06)
[2016-06-21] VITALS (11 sets, daily range): BP systolic 131–151; BP diastolic 61–97; PULSE 81–114; RESP 16–20
[2016-06-21] MEDS: PIPER-TAZO 3.375 GM IV (PMX) 100 ML IVPB SCH ×3 (02:30→18:42)
[2016-06-21] MEDS: PANTOPRAZOLE 40 MG INJ IV SCH (06:17)
[2016-06-21 07:12] LABS: ADD SCAN DIFF NO
[2016-06-21 07:18] LABS: HEMATOCRIT 32.6 % (37.0-47.0); HEMOGLOBIN 10.8 g/dl (12.0-16.0); MEAN CORPUSCULAR HEMOGLOBIN 26.2 pg (29.0-33.0); MEAN CORPUSCULAR HGB CONC 33.1 g/dl (32.0-37.0); MEAN CORPUSCULAR VOLUME 79.1 fl (82.0-101.0); MEAN PLATELET VOLUME 9.7 fl (7.4-10.4); PLATELET COUNT 318 10^3/UL (140-415); RED BLOOD COUNT 4.12 10^6/ul (4.20-5.40); RED CELL DISTRIBUTION WIDTH 16.1 % (11.5-14.5); WHITE BLOOD COUNT 10.7 10^3/ul (4.8-10.8)
[2016-06-21 07:38] LABS: POTASSIUM 3.6 mmol/L (3.5-5.1)
[2016-06-21 07:40] LABS: CREATININE 0.59 mg/dl (0.44-1.00)
[2016-06-21 07:41] LABS: CALCIUM 8.2 mg/dl (8.4-10.2); PHOSPHORUS 3.2 mg/dl (2.5-4.9)
[2016-06-21] MEDS: ACETAMINOPHEN 325 MG TAB PO PRN (08:59)
[2016-06-21] MEDS: ENOXAPARIN 40 MG/0.4 ML SYG SC SCH (09:10)
--- NOTE | 2016-06-21 09:51 | PN ---
Date/Time of Note Date/Time of Note DATE: 06/21/16 TIME: 09:47 Assessment/Plan VTE Prophylaxis VTE Prophylaxis Intervention: SCD's Lines/Catheters [facility] Saline Lock Urinary Cath still in place: No Assessment/Plan Assessment/Plan 41 yo female s/p open danielle s/p ERCP and removal of stone cont postop care advance diet as jorge ambulate surg f/u Subjective 24 Hr Interval Summary Constitutional: no complaints Exam/Review of Systems Vital Signs Vitals Vital Signs Date Time Temp Pulse Resp B/P Pulse Ox O2 Delivery O2 Flow Rate FiO2 06/21/16 08:45 98.2 100 16 140/97 95 06/20/16 19:05 2.0 06/20/16 18:00 Room Air 06/19/16 09:08 30 Intake and Output 06/20/16 06/20/16 06/21/16 15:00 23:00 07:00 Intake Total 1150.0 ml 280 ml 200 ml Output Total 1140 ml 505 ml Balance 10.0 ml -225 ml 200 ml Exam Constitutional: alert, oriented Neck: non-tender, supple Respiratory: clear to auscultation Cardiovascular: regular rate and rhythm Gastrointestinal: bowel sounds (drain in place), non-tender, soft Results Result Diagram: 06/21/16 0630 06/21/16 0630 Results 24 hrs Laboratory Tests Test 06/21/16 06:30 White Blood Count 10.7 Red Blood Count 4.12 L Hemoglobin 10.8 L Hematocrit 32.6 L Mean Corpuscular Volume 79.1 L Mean Corpuscular Hemoglobin 26.2 L Mean Corpuscular Hemoglobin Concent 33.1 Red Cell Distribution Width 16.1 H Platelet Count 318 Mean Platelet Volume 9.7 Neutrophils % Lymphocytes % Monocytes % Neutrophils # Lymphocytes # Monocytes # Sodium Level 141 Potassium Level 3.6 Chloride Level 103 Carbon Dioxide Level 28 Anion Gap 14 # Blood Urea Nitrogen 3 L Creatinine 0.59 Glucose Level 105 # Calcium Level 8.2 L Phosphorus Level 3.2 Magnesium Level 2.0 Medications Medications Current Medications Piperacillin Sod/ Tazobactam Sod (Zosyn 3.375gm/ 100 ml (Pmx)) 100 ml @ 200 mls /hr Q8H IVPB Last administered on 06/20/16t 20:48; Admin Dose 200 MLS/HR; Start 06/16/16 at 02:30 Acetaminophen (Tylenol Tab) 650 mg Q4H PRN PO pain/fever Last administered on 08:59; Admin Dose 650 MG; Start 06/16/16 at 02:30 Hydralazine HCl (Apresoline) 25 mg Q6H PRN PO sbp>160; Start 06/16/16 at 02:30 Morphine Sulfate (morphine) 2 mg Q4H PRN IV PAIN Last administered on 06/20/16 07:24; Admin Dose 2 MG; Start 06/16/16 at 17:30 Ondansetron HCl (Zofran Inj) 4 mg Q6H PRN IV NAUSEA AND/OR VOMITING Last administered on 06/20/16 22:06; Admin Dose 4 MG; Start 06/18/16 at 22:30 Hydromorphone HCl (Dilaudid) 1 mg Q3 PRN IV PAIN LEVEL 6-10 Last administered on 06/19/16 21:33; Admin Dose 1 MG; Start 06/18/16 at 22:30 Pantoprazole (Protonix Iv) 40 mg DAILY@06 IV Last administered on 06/21/16 06: 17; Admin Dose 40 MG; Start 06/19/16 at 06:00 Enoxaparin Sodium (Lovenox) 40 mg DAILY SC Last administered on 06/21/16 09:10 ; Admin Dose 40 MG; Start 06/20/16 at 10:00 GO GIL MD June 21, 2016 09:51
[2016-06-21 09:59] LABS: EOSINOPHILS # 0.1 10^3/ul (0.0-0.5); LYMPHOCYTES # 2.5 10^3/ul (0.8-2.9); MICROCYTOSIS 1+; MONOCYTE # 0.9 10^3/ul (0.3-0.9); NEUTROPHIL # 7.1 10^3/ul (1.6-7.5)
[2016-06-21 10:00] LABS: ANISOCYTOSIS 1+; HYPOCHROMASIA 1+; TOXIC GRANULATION 1+
--- NOTE | 2016-06-21 13:45 | CONS ---
Date/Time of Note Date/Time of Note DATE: 06/21/16 TIME: 13:42 Assessment/Plan Assessment/Plan Additional Assessment/Plan Abdominal pain/transaminitis Status post cholecystectomy Status post lysis of abdominal adhesions Status post ERCP/ERS/stone removal 06/17/2016 Hx of multiple RETAIL FINANCIAL ANALYST shunts Plan Monitor liver function tests Adequate pain control and hydration Further recommendations pending clinical course Patient seen in collaboration with Dr. Nielsen Consultation Date/Type/Reason Admit Date/Time June 16, 2016 at 01:42 Initial Consult Date 06/16/16 Type of Consultation: Gastroenterology Referring Provider: MARIA DEL ROSARIO FLORES MD 24 HR Interval Summary Free Text/Dictation LFTs trending downward Tolerating clear diet Exam/Review of Systems Vital Signs Vitals Vital Signs Date Time Temp Pulse Resp B/P Pulse Ox O2 Delivery O2 Flow Rate FiO2 06/21/16 12:31 81 06/21/16 12:20 98.0 16 143/85 94 06/20/16 19:05 2.0 06/20/16 18:00 Room Air 06/19/16 09:08 30 Intake and Output 06/20/16 06/20/16 06/21/16 14:59 22:59 06:59 Intake Total 1095.0 ml 460 ml 200 ml Output Total 1650 ml 505 ml Balance -555.0 ml -45 ml 200 ml Exam Constitutional: alert, well developed Psych: nl mood/affect Head: normocephalic Eyes: EOMI, nl conjunctiva, nl lids ENMT: nl external ears & nose, nl lips & teeth, nl nasal mucosa & septum Respiratory: clear to auscultation, normal air movement Cardiovascular: regular rate and rhythm Gastrointestinal: soft, incisional tenderness Musculoskeletal: nl extremities to inspection Neurological: ERGONOMICS ENGINEER II-XII intact Results Result Diagram: 06/21/16 0630 06/21/16 0630 Results 24 hrs Laboratory Tests Test 06/21/16 06:30 White Blood Count 10.7 Red Blood Count 4.12 L Hemoglobin 10.8 L Hematocrit 32.6 L Mean Corpuscular Volume 79.1 L Mean Corpuscular Hemoglobin 26.2 L Mean Corpuscular Hemoglobin Concent 33.1 Red Cell Distribution Width 16.1 H Platelet Count 318 Mean Platelet Volume 9.7 Neutrophils % 66.0 Band Neutrophils % 1.0 Lymphocytes % 23.0 Monocytes % 8.0 Eosinophils % 1.0 Neutrophils # 7.1 Lymphocytes # 2.5 Monocytes # 0.9 Eosinophils # 0.1 Differential Comment MANUAL DIFF Toxic Granulation 1+ Giant Platelets RARE Hypochromasia 1+ Anisocytosis 1+ Microcytosis 1+ Sodium Level 141 Potassium Level 3.6 Chloride Level 103 Carbon Dioxide Level 28 Anion Gap 14 # Blood Urea Nitrogen 3 L Creatinine 0.59 Glucose Level 105 # Calcium Level 8.2 L Phosphorus Level 3.2 Magnesium Level 2.0 Medications Medications Current Medications Piperacillin Sod/ Tazobactam Sod (Zosyn 3.375gm/ 100 ml (Pmx)) 100 ml @ 200 mls /hr Q8H IVPB Last administered on 06/21/16 11:10; Admin Dose 200 MLS/HR; Start 06/16/16 at 02:30 Acetaminophen (Tylenol Tab) 650 mg Q4H PRN PO pain/fever Last administered on 08:59; Admin Dose 650 MG; Start 06/16/16 at 02:30 Hydralazine HCl (Apresoline) 25 mg Q6H PRN PO sbp>160; Start 06/16/16 at 02:30 Morphine Sulfate (morphine) 2 mg Q4H PRN IV PAIN Last administered on 06/20/16 07:24; Admin Dose 2 MG; Start 06/16/16 at 17:30 Ondansetron HCl (Zofran Inj) 4 mg Q6H PRN IV NAUSEA AND/OR VOMITING Last administered on 06/20/16 22:06; Admin Dose 4 MG; Start 06/18/16 at 22:30 Hydromorphone HCl (Dilaudid) 1 mg Q3 PRN IV PAIN LEVEL 6-10 Last administered on 06/19/16 21:33; Admin Dose 1 MG; Start 06/18/16 at 22:30 Pantoprazole (Protonix Iv) 40 mg DAILY@06 IV Last administered on 06/21/16 06: 17; Admin Dose 40 MG; Start 06/19/16 at 06:00 Enoxaparin Sodium (Lovenox) 40 mg DAILY SC Last administered on 06/21/16 09:10 ; Admin Dose 40 MG; Start 06/20/16 at 10:00 RICARDO DIAZ June 21, 2016 13:45
[2016-06-21] MEDS: ONDANSETRON 4 MG INJ IV PRN (15:19)
--- NOTE | 2016-06-21 15:29 | PN ---
Date/Time of Note Date/Time of Note DATE: 06/21/16 TIME: 15:27 Assessment/Plan Lines/Catheters IV [facility] Type (from [facility]): Saline Lock Dalton in Place (from Nrs): No Assessment/Plan Assessment/Plan 41F status post subtotal fenestrated cholecystectomy, lysis of adhesions, drain placement postop day #3 * Advance to low-fat diet * Continue drains * Continue IV antibiotics * Encourage IS/OOB * Physical Therapy Further recommendations will be made based on clinical course. Subjective 24 Hr Interval Summary Looks good. Denies abdominal pain. Tolerating clear liquids. Afebrile. Ahmet drain output 55 cc serous. Malecot catheter with no output. Exam/Review of Systems Vital Signs Vitals Vital Signs Date Time Temp Pulse Resp B/P Pulse Ox O2 Delivery O2 Flow Rate FiO2 06/21/16 12:31 81 06/21/16 12:20 98.0 16 143/85 94 06/20/16 19:05 2.0 06/20/16 18:00 Room Air 06/19/16 09:08 30 Intake and Output 06/20/16 06/20/16 06/21/16 15:00 23:00 07:00 Intake Total 1150.0 ml 280 ml 200 ml Output Total 1140 ml 505 ml Balance 10.0 ml -225 ml 200 ml Exam Free Text/Dictation GENERAL: Awake, alert and oriented x3. No acute distress SKIN: No jaundice HEENT: No scleral icterus. CHEST: Clear to auscultation bilaterally HEART: Regular rate and rhythm. S1, S2. No murmurs appreciated. ABDOMEN: Soft, non-distended, bowel sounds present. Nontender to palpation. INCISIONS: clean, dry, intact EXTREMITIES: Without clubbing, cyanosis, or edema. Results Result Diagram: 06/21/1630 06/21/1630 AMRILEE HATFIELD MD June 21, 2016 15:29
[2016-06-21] MEDS: DOCUSATE SODIUM 100 MG CAP PO SCH (20:17)
[2016-06-22] VITALS (13 sets, daily range): BP systolic 117–147; BP diastolic 73–85; PULSE 75–99; RESP 17–20
[2016-06-22] MEDS: PIPER-TAZO 3.375 GM IV (PMX) 100 ML IVPB SCH ×3 (02:31→18:00)
[2016-06-22] MEDS: PANTOPRAZOLE 40 MG INJ IV SCH (06:46)
[2016-06-22 07:18] LABS: ADD SCAN DIFF NO
[2016-06-22 07:23] LABS: BASOPHIL # 0.1 10^3/ul (0.0-0.1); BASOPHILS % 0.5 % (0.0-2.0); EOSINOPHILS # 0.5 10^3/ul (0.0-0.5); EOSINOPHILS % 5.7 % (0.0-7.0); HEMOGLOBIN 10.6 g/dl (12.0-16.0); LYMPHOCYTES # 3.4 10^3/ul (0.8-2.9); LYMPHOCYTES % 37.2 % (15.0-51.0); MEAN CORPUSCULAR HGB CONC 33.1 g/dl (32.0-37.0); MEAN CORPUSCULAR VOLUME 78.4 fl (82.0-101.0); MEAN PLATELET VOLUME 9.5 fl (7.4-10.4); MONOCYTE # 0.5 10^3/ul (0.3-0.9); MONOCYTES % 5.2 % (0.0-11.0); NEUTROPHIL # 4.6 10^3/ul (1.6-7.5); PLATELET COUNT 358 10^3/UL (140-415); RED BLOOD COUNT 4.08 10^6/ul (4.20-5.40); RED CELL DISTRIBUTION WIDTH 15.9 % (11.5-14.5); WHITE BLOOD COUNT 9.2 10^3/ul (4.8-10.8)
[2016-06-22 07:47] LABS: ALBUMIN/GLOBULIN RATIO 0.78; BILIRUBIN,INDIRECT 0.4 mg/dl (0-1.1); BILIRUBIN,TOTAL 0.4 mg/dl (0.2-1.3); CALCIUM 8.2 mg/dl (8.4-10.2); CREATININE 0.67 mg/dl (0.44-1.00); POTASSIUM 3.3 mmol/L (3.5-5.1); TOTAL PROTEIN 6.8 g/dl (6.1-8.1)
[2016-06-22] MEDS: DOCUSATE SODIUM 100 MG CAP PO SCH (09:00)
[2016-06-22] MEDS: ENOXAPARIN 40 MG/0.4 ML SYG SC SCH (09:16)
[2016-06-22] MEDS ORDERED: POTASSIUM CHLORIDE (SR) 20 MEQ TAB PO STA (12:31)
--- NOTE | 2016-06-22 12:57 | PN ---
Date/Time of Note Date/Time of Note DATE: 06/22/16 TIME: 12:32 Assessment/Plan VTE Prophylaxis VTE Prophylaxis Intervention: LMWH Lines/Catheters IV Catheter Type (from [facility]): Saline Lock Urinary Cath still in place: No Assessment/Plan Assessment/Plan 41 yo female with: 1. Acute Cholecystitis, Acute choledocholithiasis - S/p ERCP and stone removal by Dr Nielsen s/p subtotal fenestrated cholecystectomy, lysis of adhesions, drain placement 06/18/2016 POD # 4, doing better every day and tolerating diet today [address] with minimal output. Dalton removed Dr Murphy following Continue Zosyn and plan to d/c on Augmentin to complete abx course if needed. 2. Acute Transaminitis: improved Prophylaxis: Lovenox for DVT prophylaxis and Protonix for GI ppx. Disposition: Downgrade to Med Surg and further bennett for d/c planning per Surgery Subjective 24 Hr Interval Summary Free Text/Dictation Patient doing well Tolerating po and pain controlled Patient was having watery stool overnight so Colace has been held Will transfer to med surg Exam/Review of Systems Vital Signs Vitals Vital Signs Date Time Temp Pulse Resp B/P Pulse Ox O2 Delivery O2 Flow Rate FiO2 06/22/16 12:16 99 06/22/16 12:01 98.1 18 147/78 96 06/20/16 19:05 2.0 06/20/16 18:00 Room Air 06/19/16 09:08 30 Intake and Output 06/21/16 06/21/16 06/22/16 14:59 22:59 06:59 Intake Total 1440 ml 450 ml Output Total 85 ml 30 ml Balance 1355 ml 420 ml Exam Constitutional: alert, oriented, well developed Respiratory: clear to auscultation, normal air movement Cardiovascular: nl pulses, regular rate and rhythm Gastrointestinal: non-tender, other (drains x 2 RUQ ), soft Musculoskeletal: nl extremities to inspection Extremities: normal pulses, other (no edema, clubbing or cyanosis ) Neurological: OFFSET PLATEMAKER II-XII intact, nl mental status, nl speech, nl strength Results Result Diagram: 06/22/16 0645 06/22/16 0645 Results 24 hrs Laboratory Tests Test 06/22/16 06:45 White Blood Count 9.2 Red Blood Count 4.08 L Hemoglobin 10.6 L Hematocrit 32.0 L Mean Corpuscular Volume 78.4 L Mean Corpuscular Hemoglobin 26.0 L Mean Corpuscular Hemoglobin Concent 33.1 Red Cell Distribution Width 15.9 H Platelet Count 358 Mean Platelet Volume 9.5 Neutrophils % 50.0 Lymphocytes % 37.2 Monocytes % 5.2 Eosinophils % 5.7 Basophils % 0.5 Nucleated Red Blood Cells % 0.0 Neutrophils # 4.6 Lymphocytes # 3.4 H Monocytes # 0.5 Eosinophils # 0.5 Basophils # 0.1 Nucleated Red Blood Cells # 0.0 Sodium Level 140 Potassium Level 3.3 L Chloride Level 106 Carbon Dioxide Level 27 Anion Gap 10 Blood Urea Nitrogen 2 L Creatinine 0.67 Glucose Level 127 Calcium Level 8.2 L Total Bilirubin 0.4 Direct Bilirubin 0.00 Indirect Bilirubin 0.4 Aspartate Amino Transf (AST/SGOT) 29 Alanine Aminotransferase (ALT/SGPT) 84 H Alkaline Phosphatase 49 Total Protein 6.8 Albumin 3.0 L Globulin 3.80 H Albumin/Globulin Ratio 0.78 Medications Medications Current Medications Piperacillin Sod/ Tazobactam Sod (Zosyn 3.375gm/ 100 ml (Pmx)) 100 ml @ 200 mls /hr Q8H IVPB Last administered on 06/22/16 10:06; Admin Dose 200 MLS/HR; Start 06/16/16 at 02:30 Acetaminophen (Tylenol Tab) 650 mg Q4H PRN PO pain/fever Last administered on 08:59; Admin Dose 650 MG; Start 06/16/16 at 02:30 Hydralazine HCl (Apresoline) 25 mg Q6H PRN PO sbp>160; Start 06/16/16 at 02:30 Morphine Sulfate (morphine) 2 mg Q4H PRN IV PAIN Last administered on 06/20/16 07:24; Admin Dose 2 MG; Start 06/16/16 at 17:30 Ondansetron HCl (Zofran Inj) 4 mg Q6H PRN IV NAUSEA AND/OR VOMITING Last administered on 06/21/16 15:19; Admin Dose 4 MG; Start 06/18/16 at 22:30 Hydromorphone HCl (Dilaudid) 1 mg Q3 PRN IV PAIN LEVEL 6-10 Last administered on 06/19/16 21:33; Admin Dose 1 MG; Start 06/18/16 at 22:30 Pantoprazole (Protonix Iv) 40 mg DAILY@06 IV Last administered on 06/22/16 06: 46; Admin Dose 40 MG; Start 06/19/16 at 06:00 Enoxaparin Sodium (Lovenox) 40 mg DAILY SC Last administered on 06/22/16 09:16 ; Admin Dose 40 MG; Start 06/20/16 at 10:00 Docusate Sodium (Colace) 100 mg TID PO Last administered on 06/21/16 20:17; Admin Dose 100 MG; Start 06/21/16 at 21:00 MICHAEL ARAYA June 22, 2016 12:52
--- NOTE | 2016-06-22 14:50 | PN ---
Date/Time of Note Date/Time of Note DATE: 06/22/16 TIME: 14:46 Assessment/Plan VTE Prophylaxis VTE Prophylaxis Intervention: ambulation Lines/Catheters IV C[facility] Type (from [facility] Saline Lock Urinary Cath still in place: No Assessment/Plan Assessment/Plan Assessment Abdominal pain/transaminitis * Cholelithiasis / Choledocholithiasis * ERCP/ERS/stone removal 06/17/2016 * S/P subtotal fenestrated cholecystectomy * Hx of multiple POT FILLER shunts Plan * Adequate pain control/hydration * continue present management Subjective 24 Hr Interval Summary Free Text/Dictation * Course reviewed with RN * Patient seen and examined * Denies abdominal pain * Tolerating diet Exam/Review of Systems Vital Signs Vitals Vital Signs Date Time Temp Pulse Resp B/P Pulse Ox O2 Delivery O2 Flow Rate FiO2 06/22/16 12:16 99 06/22/16 12:01 98.1 18 147/78 96 06/20/16 19:05 2.0 06/20/16 18:00 Room Air 06/19/16 09:08 30 Intake and Output 06/21/16 06/21/16 06/22/16 15:00 23:00 07:00 Intake Total 1440 ml 450 ml Output Total 85 ml 30 ml Balance 1355 ml 420 ml Exam Constitutional: alert, oriented Neck: non-tender, supple Respiratory: clear to auscultation, normal air movement Cardiovascular: nl pulses, regular rate and rhythm Gastrointestinal: non-tender, soft Musculoskeletal: nl extremities to inspection, nl gait and stance Results Result Diagram: 06/22/16 0645 06/22/16 0645 Results 24 hrs Laboratory Tests Test 06/22/16 06:45 White Blood Count 9.2 Red Blood Count 4.08 L Hemoglobin 10.6 L Hematocrit 32.0 L Mean Corpuscular Volume 78.4 L Mean Corpuscular Hemoglobin 26.0 L Mean Corpuscular Hemoglobin Concent 33.1 Red Cell Distribution Width 15.9 H Platelet Count 358 Mean Platelet Volume 9.5 Neutrophils % 50.0 Lymphocytes % 37.2 Monocytes % 5.2 Eosinophils % 5.7 Basophils % 0.5 Nucleated Red Blood Cells % 0.0 Neutrophils # 4.6 Lymphocytes # 3.4 H Monocytes # 0.5 Eosinophils # 0.5 Basophils # 0.1 Nucleated Red Blood Cells # 0.0 Sodium Level 140 Potassium Level 3.3 L Chloride Level 106 Carbon Dioxide Level 27 Anion Gap 10 Blood Urea Nitrogen 2 L Creatinine 0.67 Glucose Level 127 Calcium Level 8.2 L Total Bilirubin 0.4 Direct Bilirubin 0.00 Indirect Bilirubin 0.4 Aspartate Amino Transf (AST/SGOT) 29 Alanine Aminotransferase (ALT/SGPT) 84 H Alkaline Phosphatase 49 Total Protein 6.8 Albumin 3.0 L Globulin 3.80 H Albumin/Globulin Ratio 0.78 Medications Medications Current Medications Piperacillin Sod/ Tazobactam Sod (Zosyn 3.375gm/ 100 ml (Pmx)) 100 ml @ 200 mls /hr Q8H IVPB Last administered on 06/22/16 10:06; Admin Dose 200 MLS/HR; Start 06/16/16 at 02:30 Acetaminophen (Tylenol Tab) 650 mg Q4H PRN PO pain/fever Last administered on 08:59; Admin Dose 650 MG; Start 06/16/16 at 02:30 Hydralazine HCl (Apresoline) 25 mg Q6H PRN PO sbp>160; Start 06/16/16 at 02:30 Morphine Sulfate (morphine) 2 mg Q4H PRN IV PAIN Last administered on 06/20/16 07:24; Admin Dose 2 MG; Start 06/16/16 at 17:30 Ondansetron HCl (Zofran Inj) 4 mg Q6H PRN IV NAUSEA AND/OR VOMITING Last administered on 06/21/16 15:19; Admin Dose 4 MG; Start 06/18/16 at 22:30 Hydromorphone HCl (Dilaudid) 1 mg Q3 PRN IV PAIN LEVEL 6-10 Last administered on 06/19/16 21:33; Admin Dose 1 MG; Start 06/18/16 at 22:30 Enoxaparin Sodium (Lovenox) 40 mg DAILY SC Last administered on 06/22/16 09:16 ; Admin Dose 40 MG; Start 06/20/16 at 10:00 Pantoprazole (Protonix Tab) 40 mg DAILY@06 PO ; Start 06/23/16 at 06:00 PRABHU LEA MD June 22, 2016 14:50
--- NOTE | 2016-06-22 15:11 | PN ---
Date/Time of Note Date/Time of Note DATE: 06/22/16 TIME: 15:09 Assessment/Plan Lines/Catheters IV Catheter Type (from [facility]): Saline Lock Dalton in Place (from [facility]): No Assessment/Plan Assessment/Plan 41F status post subtotal fenestrated cholecystectomy, lysis of adhesions, drain placement postop day #4 * Okay for transfer to [facility] * DC planning * Will send patient home with both drains and will manage them and take them out as an outpatient * Drain teaching Further recommendations will be made based on clinical course. Subjective 24 Hr Interval Summary Looks good. Feels good. Tolerating diet. Having some loose stools. Afebrile. Ahmet drain output 50 cc serous. Malecot catheter with no drainage. Exam/Review of Systems Vital Signs Vitals Vital Signs Date Time Temp Pulse Resp B/P Pulse Ox O2 Delivery O2 Flow Rate FiO2 06/22/16 12:16 99 06/22/16 12:01 98.1 18 147/78 96 06/20/16 19:05 2.0 06/20/16 18:00 Room Air 06/19/16 09:08 30 Intake and Output 06/21/16 06/21/16 06/22/16 15:00 23:00 07:00 Intake Total 1440 ml 450 ml Output Total 85 ml 30 ml Balance 1355 ml 420 ml Exam Free Text/Dictation GENERAL: Awake, alert and oriented x3. No acute distress SKIN: No jaundice HEENT: No scleral icterus. CHEST: Clear to auscultation bilaterally HEART: Regular rate and rhythm. S1, S2. No murmurs appreciated. ABDOMEN: Soft, non-distended, bowel sounds present. Nontender to palpation. INCISIONS: clean, dry, intact EXTREMITIES: Without clubbing, cyanosis, or edema. Results Result Diagram: 06/22/16 0645 06/22/16 0645 MARILEE HATFIELD MD June 22, 2016 15:11
[2016-06-23] MEDS: PIPER-TAZO 3.375 GM IV (PMX) 100 ML IVPB SCH (03:09)
[2016-06-23 05:21] LABS: ADD SCAN DIFF NO
[2016-06-23 05:29] LABS: HEMATOCRIT 32.7 % (37.0-47.0); HEMOGLOBIN 10.6 g/dl (12.0-16.0); MEAN CORPUSCULAR HEMOGLOBIN 25.7 pg (29.0-33.0); MEAN CORPUSCULAR HGB CONC 32.4 g/dl (32.0-37.0); MEAN CORPUSCULAR VOLUME 79.4 fl (82.0-101.0); MEAN PLATELET VOLUME 9.4 fl (7.4-10.4); PLATELET COUNT 417 10^3/UL (140-415); RED BLOOD COUNT 4.12 10^6/ul (4.20-5.40); RED CELL DISTRIBUTION WIDTH 15.8 % (11.5-14.5); WHITE BLOOD COUNT 8.5 10^3/ul (4.8-10.8)
[2016-06-23 05:38] LABS: ALBUMIN 2.9 g/dl (3.3-4.9); POTASSIUM 3.4 mmol/L (3.5-5.1)
[2016-06-23 05:39] LABS: MAGNESIUM 1.9 mg/dl (1.7-2.5); PHOSPHORUS 4.5 mg/dl (2.5-4.9)
[2016-06-23 05:40] LABS: CREATININE 0.72 mg/dl (0.44-1.00)
[2016-06-23 05:41] LABS: ALBUMIN/GLOBULIN RATIO 0.72; BILIRUBIN,INDIRECT 0.4 mg/dl (0-1.1); BILIRUBIN,TOTAL 0.4 mg/dl (0.2-1.3); CALCIUM 8.4 mg/dl (8.4-10.2); TOTAL PROTEIN 6.9 g/dl (6.1-8.1)
[2016-06-23] MEDS ORDERED: PANTOPRAZOLE (EC) 40 MG TAB PO SCH (06:00)
[2016-06-23] MEDS: ACETAMINOPHEN 325 MG TAB PO PRN (06:01)
[2016-06-23 07:38] VITALS: BP 146/77; RESP 18
[2016-06-23] MEDS: ENOXAPARIN 40 MG/0.4 ML SYG SC SCH (08:30)
--- NOTE | 2016-06-23 09:18 | PN ---
Date/Time of Note Date/Time of Note DATE: 06/23/16 TIME: 09:16 Assessment/Plan Lines/Catheters IV Catheter Type (from [facility]): Saline Lock Dalton in Place (from [facility]): No Assessment/Plan Assessment/Plan 41F status post subtotal fenestrated cholecystectomy, lysis of adhesions, drain placement postop day #5 * DC planning * Will send patient home with both drains and will manage them and take them out as an outpatient * Drain teaching * Surgically stable for discharge home when medically cleared. * Follow-up in office in 1 week Further recommendations will be made based on clinical course. Subjective 24 Hr Interval Summary Continues to progress well. No complaints. Afebrile. Ahmet drain 20 cc serous. Malecot catheter no drainage. Exam/Review of Systems Vital Signs Vitals Vital Signs Date Time Temp Pulse Resp B/P Pulse Ox O2 Delivery O2 Flow Rate FiO2 06/23/16 07:38 98.5 79 18 146/77 98 06/22/16 23:30 Room Air 06/20/16 19:05 2.0 06/19/16 09:08 30 Intake and Output 06/22/16 06/22/16 06/23/16 15:00 23:00 07:00 Intake Total 100 ml 500 ml Output Total 30 ml 30 ml Balance 70 ml 470 ml Exam Free Text/Dictation GENERAL: Awake, alert and oriented x3. No acute distress SKIN: No jaundice HEENT: No scleral icterus. CHEST: Clear to auscultation bilaterally HEART: Regular rate and rhythm. S1, S2. No murmurs appreciated. ABDOMEN: Soft, non-distended, bowel sounds present. Nontender to palpation. INCISIONS: clean, dry, intact EXTREMITIES: Without clubbing, cyanosis, or edema. Results Result Diagram: 06/23/16 0420 06/23/16 0420 MARILEE HATFIELD MD June 23, 2016 09:18
[2016-06-23] MEDS ORDERED: POTASSIUM CHLORIDE (SR) 20 MEQ TAB PO STA (10:48)
[2016-06-23 11:13] LABS: BASOPHIL # 0.1 10^3/ul (0.0-0.1); EOSINOPHILS # 0.7 10^3/ul (0.0-0.5); LYMPHOCYTES # 2.8 10^3/ul (0.8-2.9); MONOCYTE # 0.7 10^3/ul (0.3-0.9); NEUTROPHIL # 4.3 10^3/ul (1.6-7.5)
[2016-06-23] MEDS ORDERED: AMOXICILLIN/CLAV 875 MG TAB PO SCH (12:00)
--- NOTE | 2016-06-23 12:35 | PN ---
Date/Time of Note Date/Time of Note DATE: 06/23/16 TIME: 12:31 Assessment/Plan VTE Prophylaxis VTE Prophylaxis Intervention: ambulation, LMWH Lines/Catheters IV Catheter Type (from Nrs): Saline Lock Urinary Cath still in place: No Assessment/Plan Assessment/Plan 41 yo female with: 1. Acute Cholecystitis, Acute choledocholithiasis S/p ERCP and stone removal by Dr Nielsen s/p subtotal fenestrated cholecystectomy, lysis of adhesions, drain placement 06/18/2016 POD # 5, doing better every day and tolerating diet [address] with minimal output but to patient to go home with them per Dr Murphy with outpatient follow up in 1 week. D/c home today on Augmentin to complete abx course x 7 days with probiotics 2. Acute Transaminitis: resolved. Prophylaxis: Lovenox for DVT prophylaxis and Protonix for GI ppx. Disposition: D/c home today with 2 drains and outpatient follow up with Dr Murphy in 1 week Subjective 24 Hr Interval Summary Free Text/Dictation Patient doing well and tolerating diet Pain minimal Labs wnl Appreciate recs from Dr Murphy and GI notified, patient to discharge home today with drains x2 and follow up with Dr Murphy in 1 week Exam/Review of Systems Vital Signs Vitals Vital Signs Date Time Temp Pulse Resp B/P Pulse Ox O2 Delivery O2 Flow Rate FiO2 06/23/16 07:38 98.5 79 18 146/77 98 06/22/16 23:30 Room Air 06/20/16 19:05 2.0 06/19/16 09:08 30 Intake and Output 06/22/16 06/22/16 06/23/16 15:00 23:00 07:00 Intake Total 100 ml 500 ml Output Total 30 ml 30 ml Balance 70 ml 470 ml Exam Constitutional: alert, oriented, well developed Respiratory: clear to auscultation, normal air movement Cardiovascular: nl pulses, regular rate and rhythm Gastrointestinal: non-tender, other (drains x2 in place ), soft Musculoskeletal: nl extremities to inspection Extremities: normal pulses, other (no edema, clubbing or cyanosis ) Neurological: TILE GRINDER II-XII intact, nl mental status, nl speech, nl strength, other (s/p TECHNICAL ILLUSTRATIONS MAP INKER shunt ) Results Result Diagram: 5/9/17 0420 5/9/17 0420 Results 24 hrs Laboratory Tests Test 06/23/16 04:20 White Blood Count 8.5 Red Blood Count 4.12 L Hemoglobin 10.6 L Hematocrit 32.7 L Mean Corpuscular Volume 79.4 L Mean Corpuscular Hemoglobin 25.7 L Mean Corpuscular Hemoglobin Concent 32.4 Red Cell Distribution Width 15.8 H Platelet Count 417 H Mean Platelet Volume 9.4 Neutrophils % 50.0 Lymphocytes % 33.0 Monocytes % 8.0 Eosinophils % 8.0 H Basophils % 1.0 Neutrophils # 4.3 Lymphocytes # 2.8 Monocytes # 0.7 Eosinophils # 0.7 H Basophils # 0.1 Sodium Level 143 Potassium Level 3.4 L Chloride Level 103 Carbon Dioxide Level 28 Anion Gap 15 Blood Urea Nitrogen 4 L Creatinine 0.72 Glucose Level 107 Calcium Level 8.4 Phosphorus Level 4.5 Magnesium Level 1.9 Total Bilirubin 0.4 Direct Bilirubin 0.00 Indirect Bilirubin 0.4 Aspartate Amino Transf (AST/SGOT) 23 Alanine Aminotransferase (ALT/SGPT) 66 Alkaline Phosphatase 46 Total Protein 6.9 Albumin 2.9 L Globulin 4.00 H Albumin/Globulin Ratio 0.72 Medications Medications Current Medications Acetaminophen (Tylenol Tab) 650 mg Q4H PRN PO pain/fever Last administered on 06:01; Admin Dose 650 MG; Start 06/16/16 at 02:30 Hydralazine HCl (Apresoline) 25 mg Q6H PRN PO sbp>160; Start 06/16/16 at 02:30 Morphine Sulfate (morphine) 2 mg Q4H PRN IV PAIN Last administered on 06/20/16 07:24; Admin Dose 2 MG; Start 06/16/16 at 17:30 Ondansetron HCl (Zofran Inj) 4 mg Q6H PRN IV NAUSEA AND/OR VOMITING Last administered on 06/21/16 15:19; Admin Dose 4 MG; Start 06/18/16 at 22:30 Hydromorphone HCl (Dilaudid) 1 mg Q3 PRN IV PAIN LEVEL 6-10 Last administered on 06/19/16 21:33; Admin Dose 1 MG; Start 06/18/16 at 22:30 Enoxaparin Sodium (Lovenox) 40 mg DAILY SC Last administered on 06/23/16 08:30 ; Admin Dose 40 MG; Start 06/20/16 at 10:00 Pantoprazole (Protonix Tab) 40 mg DAILY@06 PO Last administered on 06/23/16t 06: 01; Admin Dose 40 MG; Start 06/23/16 at 06:00 Amoxicillin/ Clavulanate Potassium (Augmentin) 875 mg BID PO ; Start 06/23/16 at 12:00 MICHAEL ARAYA June 23, 2016 12:35
--- NOTE | 2016-06-23 12:36 | PDOCDIS ---
Discharge Instructions CONDITION Patient Condition: Stable HOME CARE INSTRUCTIONS: Diet Instructions: Low Fat /CholesterolSpecial Diet: Soft diet ACTIVITY: Activity Restrictions: Rest between Activity Avoid heavy lifting Do not operate Power Tool Avoid Heavy Housework FOLLOW UP/APPOINTMENTS Appointments Follow up with PCP within 1 week Follow up with Dr Murphy in 1 week MICHAEL ARAYA June 23, 2016 12:36
[2016-06-23] MEDS ORDERED: OXYC-209 PO (12:39)
[2016-06-23] MEDS ORDERED: PANT40TA4 PO (12:39)
[2016-06-23] MEDS ORDERED: AMOX1TAB10 PO (12:39)
[2016-06-23] MEDS ORDERED: LACT1CAP57 PO (12:39)
[2016-06-23] MEDS ORDERED: OXYCODONE/ACETAMINOPHEN (5/325) TAB PO PRN (13:00)
--- NOTE | 2016-06-23 13:08 | PN ---
Date/Time of Note Date/Time of Note DATE: 06/23/16 TIME: 13:06 Assessment/Plan VTE Prophylaxis VTE Prophylaxis Intervention: SCD's Lines/Catheters IV Catheter Type (from [facility] Saline Lock Urinary Cath still in place: No Assessment/Plan Assessment/Plan Abdominal pain/transaminitis resolved * Cholelithiasis / Choledocholithiasis * ERCP/ERS/stone removal 06/17/2016 * S/P subtotal fenestrated cholecystectomy * Hx of multiple FILLETER shunts * * Plan * stable for outpatient management Subjective 24 Hr Interval Summary Free Text/Dictation * Course reviewed with RN * Patient seen and examined * no abdominal pain Exam/Review of Systems Vital Signs Vitals Vital Signs Date Time Temp Pulse Resp B/P Pulse Ox O2 Delivery O2 Flow Rate FiO2 06/23/16 07:38 98.5 79 18 146/77 98 06/22/16 23:30 Room Air 06/20/16 19:05 2.0 06/19/16 09:08 30 Intake and Output 06/22/16 06/22/16 06/23/16 14:59 22:59 06:59 Intake Total 100 ml 500 ml Output Total 30 ml 30 ml Balance 70 ml 470 ml Exam Constitutional: alert, oriented Neck: non-tender, supple Respiratory: clear to auscultation, normal air movement Cardiovascular: nl pulses, regular rate and rhythm Gastrointestinal: non-tender, other (drain in placed), soft, No rebound or guarding Genitourinary - Female: nl adnexae Musculoskeletal: nl extremities to inspection, nl gait and stance Results Result Diagram: 06/23/16 0420 06/23/16 0420 Results 24 hrs Laboratory Tests Test 06/23/16 04:20 White Blood Count 8.5 Red Blood Count 4.12 L Hemoglobin 10.6 L Hematocrit 32.7 L Mean Corpuscular Volume 79.4 L Mean Corpuscular Hemoglobin 25.7 L Mean Corpuscular Hemoglobin Concent 32.4 Red Cell Distribution Width 15.8 H Platelet Count 417 H Mean Platelet Volume 9.4 Neutrophils % 50.0 Lymphocytes % 33.0 Monocytes % 8.0 Eosinophils % 8.0 H Basophils % 1.0 Neutrophils # 4.3 Lymphocytes # 2.8 Monocytes # 0.7 Eosinophils # 0.7 H Basophils # 0.1 Sodium Level 143 Potassium Level 3.4 L Chloride Level 103 Carbon Dioxide Level 28 Anion Gap 15 Blood Urea Nitrogen 4 L Creatinine 0.72 Glucose Level 107 Calcium Level 8.4 Phosphorus Level 4.5 Magnesium Level 1.9 Total Bilirubin 0.4 Direct Bilirubin 0.00 Indirect Bilirubin 0.4 Aspartate Amino Transf (AST/SGOT) 23 Alanine Aminotransferase (ALT/SGPT) 66 Alkaline Phosphatase 46 Total Protein 6.9 Albumin 2.9 L Globulin 4.00 H Albumin/Globulin Ratio 0.72 Medications Medications Current Medications Acetaminophen (Tylenol Tab) 650 mg Q4H PRN PO pain/fever Last administered on 06:01; Admin Dose 650 MG; Start 06/16/16 at 02:30 Hydralazine HCl (Apresoline) 25 mg Q6H PRN PO sbp>160; Start 06/16/16 at 02:30 Ondansetron HCl (Zofran Inj) 4 mg Q6H PRN IV NAUSEA AND/OR VOMITING Last administered on 06/21/16 15:19; Admin Dose 4 MG; Start 06/18/16 at 22:30 Enoxaparin Sodium (Lovenox) 40 mg DAILY SC Last administered on 06/23/16 08:30 ; Admin Dose 40 MG; Start 06/20/16 at 10:00 Pantoprazole (Protonix Tab) 40 mg DAILY@06 PO Last administered on 06/23/16 06: 01; Admin Dose 40 MG; Start 06/23/16 at 06:00 Amoxicillin/ Clavulanate Potassium (Augmentin) 875 mg BID PO ; Start 06/23/16 at 12:00 Oxycodone/ Acetaminophen (Percocet (5/ 325)) 1 tab Q6 PRN PO PAIN; Start at 13:00 PRABHU LEA MD June 23, 2016 13:08
--- NOTE | 2016-06-23 16:16 | DS ---
DATE OF ADMISSION: 06/16/2016 DATE OF DISCHARGE: 06/23/2016 ADMITTING PHYSICIAN: Dr. Feliz DISCHARGING PHYSICIAN: Dr. Lan. CHIEF COMPLAINT ON ADMISSION: Abdominal pain. CONSULTANTS DURING THIS ADMISSION: Dr. Nielsen from gastroenterology and Dr. Murphy from general surg shreya. BRIEF HISTORY OF PRESENT ILLNESS: This is a 41-year-old female with likely history of gallstone dis ease who presented to the emergency department with complaint of 1 week of abdominal pain, epigastri c right upper quadrant area along with some nausea but no vomiting. No fevers or chills. She came to the emergency department at least 3 times for the same complaint. She was actually discharged ho dc, but she came right back to the ER due to recurrence of her symptoms severely. The patient was a dmitted to a medical/surgical bed for gastroenterology evaluation. HOSPITAL COURSE: The patient had MRCP done that showed choledocholithiasis. Therefore, Dr. Radha moyer was consulted and also Dr. Vic Murphy from general surgery. Patient was maintained on Zosy n for antibiotic coverage. She had an ERCP with stone removal on 06/17/2016. This was followed by a cholecystectomy by Dr. Murphy on 06/18/2016. The patient was found to have chronic cholecystitis a nd cholelithiasis, extensive peritoneal adhesion requiring for her to have a more extensive surgery including a diagnostic laparoscopy open or fenestrated cholecystectomy, placement of a cholecystecto my drain, placement of a Ahmet drain and lysis of adhesions. Postoperatively, the patient was admit allyssa to the intensive care unit. The patient was kept intubated post procedure due to concerns from anesthesia. The patient was extubated within 24 hours postoperatively. She remained stable and was subsequently transferred to a telemetry bed where she has remained stable and by 06/22/2016, she wa s stable for transfer to a medical/surgical bed. In the meantime, she has been passing gas and star allyssa having bowel movements. Therefore her diet has been advanced. Dalton catheter is discontinued. Her 2 postoperative drains are kept in place at this point. She is ambulating, passing gas, tolera ting p.o. with very minimal abdominal pain. Her white blood cell count has been within normal for t he past 3 days. Given the extensive disease, she will be maintained on a total of 14 days of antibi otics. She already completed 7 days at this point. We will give her 7 more days of Augmentin to ronald díaz home with. She has been seen by surgery today and is surgically stable for discharge. She is also medically stable for discharge. DISPOSITION: Discharge home with home health. DISCHARGE CONDITION: Stable. DISCHARGE DIET: Soft, low fat diet. DISCHARGE ACTIVITY: Resume home activity; however, the patient is advised to avoid lifting, heavy h ousework or long showers. FOLLOWUP: The patient is to follow up with her primary care physician within [address] Linda valdovinos in 1 week. DISCHARGE DIAGNOSES 1. Acute cholecystitis. 2. Acute choledocholithiasis, status post endoscopic retrograde cholangiopancreatography with stone removal and status post cholecystectomy open. 3. Acute transaminitis, resolved. DISCHARGE MEDICATIONS: Include: 1. Augmentin 875 mg p.o. b.i.d. for 7 more days. 2. Probiotics or Culturelle 1 tab p.o. b.i.d. 3. Protonix 40 mg p.o. daily. 4. Percocet 10/325 one tab p.o. q.6h. p.r.n. pain. The patient already has this at home. She als o has some Naprosyn, ibuprofen as needed and I have recommended for her to take Tylenol if needed al so. Dictated By: MICHAEL TERRELL/SHANELL Conf#: [id number] DID#: [id number]
== END 2016-06-23 15:45 | disposition home health service (06) | DRG 416 ==
LOC: FTE 18:42 → PP2 06-16 01:42 → ICU 06-18 22:49 → MS4 06-20 18:46 → MS1 06-22 23:20
PROVIDERS: ADMIT Legal Medicine; ATTEND Legal Medicine
PROC: 0FC98ZZ Extirpation of Matter from Common Bile Duct, Via Natural or Artificial Opening Endoscopic (ICD-10-PCS; 2016-06-17)
PROC: 0FJ44ZZ Inspection of Gallbladder, Percutaneous Endoscopic Approach (ICD-10-PCS; 2016-06-18)
PROC: 0FT40ZZ Resection of Gallbladder, Open Approach (ICD-10-PCS; principal; 2016-06-18 18:00)
DX: K80.46 Calculus of bile duct with acute and chronic cholecystitis without obstruction (principal); K66.0 Peritoneal adhesions (postprocedural) (postinfection); Z98.2 Presence of cerebrospinal fluid drainage device; Z53.31 Laparoscopic surgical procedure converted to open procedure
CPT/HCPCS: 36415; 36600; 70250; 71010; 74176; 74181; 74330; 76705; 80048; 80053; 82803; 83690; 83735; 84100; 85025; 85610; 85730; 87081; 88304; 93005; 94002; 94003; 94770; 96365; 96366; 96375; 96376; C9113; J0330; J0690; J1100; J1170; J1650; J2250; J2270; J2370; J2405; J2543; J2765; J2795; J3010; J3480; J7030; J7042